=== PATIENT | male | born 2000 | race Caucasian/White ===

== ENCOUNTER 2023-04-27 08:57 | Outpatient (AMB) | payer OTHER, SELFPAY ==
[2023-04-27 09:02] VITALS: BP 108/70; PULSE 58; RESP 13; TEMP 36.6; O2SAT 99; BMI 26.8
--- NOTE | 2023-04-27 09:02 | MHC.PC.OV ---
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 Required: No Accompanied by: Self / Same As Patient Allergies shellfish derived Adverse Reaction (Intermediate, Verified 04/27/23 09:14) Hives wine Adverse Reaction (Intermediate, Uncoded 04/27/23 09:14) Hives Medication List - Last Reconciled 04/27/23 by Roselia De Los Santos CNP cetirizine (Zyrtec) 10 mg PO DAILY PRN finasteride 1 mg PO DAILY Tobacco use date assessed: 04/27/23 Dental Screening Dental Screen Date: 04/27/23 Did you have a dental visit in the last 12 months?: No Did you have a dental problem in the last 6 months where you did not have access to dental care?: No Was dental information given to patient?: Patient has dentist HPI HPI Comments History of Present Illness Details New patient Prior PCP:?[facility] Last office visit/CPE: About 5-6 years Acute issue(s): Rectal bleeding r/t anal fissure (diagnosed in the ED and urgent care January 2023) -No bleeding in the past 6 weeks Hair thinning/loss prevention -Is taking finasteride 1mg daily, prescribed by [facility] online Seasonal allergy -Is taking cetirizine 10mg daily He offers no complaints and denies acute symptoms at this time PMHx: Seasonal allergies, anal fissure, hair thinning/loss SurgHx: None FHx: Mom: Asthma SocHx: Nonsmoker. Non drinker. No recreational drugs. 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 1. Little interest or pleasure in doing things: not at all 2. Feeling down, depressed, or hopeless: not at all 3. Trouble falling or staying asleep, or sleeping too much: several days 4. Feeling tired or having little energy: several days 5. Poor appetite or overeating: not at all 6. Feeling bad about yourself - or that you are a failure or have let yourself or your family down: not at all 7. Trouble concentrating on things, such as reading the newspaper or watching television: not at all 8. Moving or speaking so slowly that other people could have noticed. Or the opposite - being so fidgety or restless that you have been moving around a lot more than usual: not at all 9. Thoughts that you would be better off or of hurting yourself in some way: not at all Total score: 2 Depression Screening Interpretation: Negative Depression Screening Done: Yes 13242 - PHQ-9 Billing: Yes Source: Developed by Drs. Earl El, Edith Seaman, Markus España and colleagues, with an educational sunshine from [employer]. Thrive Questionnaire Date Thrive assessed: 04/27/23 I am a: Patient What is your living situation today?: I have a steady place to live Within the past 12 months, did the food you bought not last and you didn't have the money to get more?: Never true Within the past 12 months, did you worry whether your food would run out before you got money to buy more?: Never true Do you have trouble paying for medicines?: No Do you have trouble getting transportation to medical appointments?: No Do you have trouble paying your heating and electricity bill?: No Do you have trouble taking care of your child, family member or friend?: No Do you have trouble with day-to-day activities such as bathing, preparing meals, shopping, managing finances, etc.?: No Are you currently unemployed and looking for a job?: No Are you interested in more education?: Yes Please select the resources that you would like help with: Education and None Currently or been in a relationship where the following occur: no concerns reported THRIVE Score: 0 AUDIT C Alcohol Use Questionnaire (AUDIT-C) 1. How often do you have a drink containing alcohol?: Never 3. How often do you have six or more drinks on one occasion?: Never Total Score: 0 CLARIBEL-7 AMB Questionnaire CLARIBEL-7 Date CLARIBEL - 7 assessed: 04/27/23 Feeling nervous, anxious, or on edge: 0 = Not at all Not being able to stop or control worryin = Not at all Worrying too much about different things: 0 = Not at all Trouble relaxin = Several days Being so restless that it is hard to sit still: 0 = Not at all Becoming easily annoyed or irritable: 0 = Not at all Feeling afraid as if something awful might happen: 0 = Not at all Total CLARIBEL-7 score (0-4 normal; 5-9 mild; 10-14 moderate; 15-21 severe): 1 Source: Developed by Drs. Earl El, Edith Seaman, Markus España and colleagues, with an educational sunshine from [employer]. CLARIBEL-7 Assessment Billing CLARIBEL-7 Assessment Tool: CLARIBEL-7 Assessment 12921 Review of Systems Const Details: Const Denies chills, Denies fatigue, Denies fever(s), Denies headache(s) and Denies weakness ENT Denies dizziness and Denies headache(s) Card Denies chest pain, Denies lightheadedness, Denies dyspnea and Denies other (Palpitations) Resp Denies cough, Denies dyspnea, Denies wheezing and Denies other ( shortness of breath) GI Denies abdominal pain, Denies melena, Denies hematochezia, Denies change in bowel habits, Denies dyspepsia and Denies nausea Denies hematuria and Denies dysuria Musc Denies abnormal gait, Denies myalgias, Denies arthralgias, Denies numbness and Denies tingling Skin/Breast Denies rash, Denies unusual bruising and Denies wounds Neuro Denies abnormal gait, Denies dizziness, Denies headache(s), Denies memory loss, Denies numbness, Denies Sensory deficit (Neuro), Denies tingling and Denies weakness Psych Denies anxiety, Denies depression, Denies memory loss Endo Denies cold intolerance, Denies fatigue, Denies heat intolerance, Denies polydipsia and Denies polyuria Aller/Immun Denies wheezing Physical exam (Primary Care) Vital Signs: Last Vital Signs Temp 97.8 F 04/27/23 09:02 Pulse 58 04/27/23 09:02 Resp 13 04/27/23 09:02 BP 108/70 04/27/23 09:02 Pulse Ox 99 04/27/23 09:02 Oxygen Delivery Method Room Air 04/27/23 09:02 BMI result Body Mass Index 26.8 Tobacco/Smoking Status: Tobacco use Status Tobacco use date assessed 04/27/23 04/27/23 09:15 Patient Tobacco Use Status Never used Tobacco 04/27/23 09:15 e-Cigarette/Vaping Use Never Used 04/27/23 09:15 PHQ-9: PHQ-9 Score PHQ-9: Total score 2 04/27/23 09:19 Depression Screening Interpretation: Negative Thrive Assessment: Date of Thrive Assessment Date Thrive assessed 04/27/23 04/27/23 09:15 Currently or been in a relationship where the following occur: no concerns reported Const Other: General: no acute distress and well developed Nutritional Appearance: well nourished Orientation/consciousness: patient oriented x3 HENMT Head: Yes normocephalic and Yes atraumatic Normal hair/volume Eyes General: appearance normal, both eyes and all related structures Pupils: Equal, round and reactive pupils present EOM: EOMs intact bilaterally Resp Effort & Inspection: normal respiratory effort Auscultation: clear to auscultation bilaterally Cardio Rate: regular rate Rhythm: regular rhythm Heart sounds: S1 normal heart sound present, S2 normal heart sound present, no gallops, no murmurs and no rubs GI Palpation (GI): No Abdominal aortic bruit present, Soft to palpation, nontender, No hepatosplenomegaly present and No Rebound tenderness present Auscultation: normal bowel sounds General: Yes no CVA tenderness Back/Spine/Pelvis Back: no CVA tenderness Cervical Spine: cervical ROM normal and No Cervical spine tenderness Thoracic/Lumbar Spine: thoraco-lumbar ROM normal, No pain with thoraco-lumbar ROM, No thoracic spinal tenderness and No lumbar spinal tenderness Extrem General: Yes normal to inspection, No edema and No calf tenderness Skin General: warm and dry. Normal skin color. Normal skin turgor Lesions: no lesions Rashes: no rashes Trauma: no lacerations or abrasions Wounds: no wounds Nails: normal Neuro General: patient oriented x3, gait normal and no focal neuro deficit Cranial nerves: Yes Equal, round and reactive pupils present Cognition (Neuro): normal cognition Gait exam (Neuro): Normal gait present Sensory Exam: No Sensory deficit (Neuro) Psych Appearance: grossly normal Affect: normal affect Attitude: cooperative Thought process: Normal thought process present Assessment and Plan Assessment & Plan (1) Anal fissure: Code(s): K60.2 - Anal fissure, unspecified Plan: Reports h/o anal fissure with rectal bleeding. No symptoms x 6 weeks Healthy diet including fibers and adequate hydration encouraged Follow-up in 1 month for complete physical exam and labs review or return sooner with symptoms or concerns. Will consider referring to GI Verbalized understanding and agreed with the plan (2) Seasonal allergies: Code(s): J30.2 - Other seasonal allergic rhinitis Plan: No acute symptoms On cetirizine daily Follow-up with symptoms or concerns Verbalized understanding and agreed with the plan (3) Laboratory tests ordered as part of a complete physical exam (CPE): Code(s): Z00.00 - Encounter for general adult medical examination without abnormal findings Plan: Fasting labs ordered in preparation of a complete physical exam. Advised to fast for at least 10 hours before getting labs drawn. May drink water Verbalized understanding and agreed with treatment plan. Orders: Orders Comprehensive [place]. Panel Fast Today Z00.00 - Encounter for general adult medical examination without abnormal findings Complete Blood Count Auto Diff Today Z00.00 - Encounter for general adult medical examination without abnormal findings Lipid Panel Today Z00.00 - Encounter for general adult medical examination without abnormal findings TSH reflex Free T4 Today Z00.00 - Encounter for general adult medical examination without abnormal findings UA CC w/rflx Micro + Cult Today Z00.00 - Encounter for general adult medical examination without abnormal findings Coding Level of Care Code New Pt Level 4 (61126) Diagnoses Anal fissure K60.2 Seasonal allergies J30.2 Laboratory tests ordered as part of a complete physical exam (CPE) Z00. Additional Codes CLARIBEL-7 Assessment Billing - CLARIBEL-7 Assessment Tool: CLARIBEL-7 Assessment 13656 ([id number])
== END 2023-04-27 09:38 | disposition home or self-care (01) ==
PROVIDERS: PCP Nurse Practitioner Family; Visit Provider Nurse Practitioner Family
DX: K60.2 Anal fissure, unspecified (principal); J30.2 Other seasonal allergic rhinitis; Z00.00 Encounter for general adult medical examination without abnormal findings
CPT/HCPCS: 99204

== ENCOUNTER 2023-05-19 09:09 | Outpatient (REF) | payer OTHER, SELFPAY ==
[2023-05-19 11:07] LABS: Appearance Urine Clear; Color Urine Yellow; Glucose Urine UA Negative (Negative); Leukocyte Esterase Urine Negative (Negative); Nitrite Urine Negative (Negative); Urine Blood Negative (Negative); Urine Ketones Negative (Negative); Urine Protein Negative (Neg-Trace)
[2023-05-19 11:09] LABS: MANUAL DIFF FLAG NO
[2023-05-19 11:11] LABS: Basophils Absolute Auto 0.1 X10*3/uL (0.0-0.2); Basophils Percent Auto 0.9 % (0-2); Eosinophils Absolute Auto 0.4 X10*3/uL (0.0-0.4); Eosinophils Percent Auto 5.9 % (0-4); Hematocrit 46.9 % (42.0-52.0); Hemoglobin 15.7 g/dl (14.0-18.0); Imm Gran Abs Auto 0.02 X10*3/uL (0.00-0.03); Imm Gran Pct Auto 0.3 % (0.0-0.4); Lymphocytes Percent Auto 31.7 % (20-40); Mean Corpuscular HGB Conc 33.5 g/dl (31.0-36.0); Mean Corpuscular Hemoglobin 29.4 pg (27.0-33.0); Mean Corpuscular Volume 87.8 fL (80.0-98.0); Monocytes Absolute Auto 0.5 X10*3/uL (0.1-1.2); Neutrophils Absolute Auto 3.5 x10*3/uL (2.0-8.3); Neutrophils Percent Auto 54.2 % (45-73); Platelet Count 278 X10*3/uL (160-400); Red Blood Count 5.34 X10*6/uL (4.60-5.80); Red Cell Distribution Width 13.2 % (11.0-16.0); White Blood Count 6.4 X10*3/uL (4.8-10.8)
[2023-05-19 12:34] LABS: Alanine Aminotransferase 57 U/L (0-40); Albumin Level 4.5 g/dL (3.5-5.0); Alkaline Phosphatase 70 U/L (39-117); Anion Gap 11 (12-20); Aspartate Amino Transferase 26 U/L (5-37); Bilirubin Total 0.5 mg/dL (0.0-1.0); Blood Urea Nitrogen 13 mg/dL (9-16); Calcium 9.4 mg/dL (8.4-10.2); Carbon Dioxide 28 mmol/L (22-29); Chloride 106 mmol/L (96-108); Cholesterol 110 mg/dL (<200); Estimated Glomerular Filt Rate > 60; Glucose Fasting 94 mg/dL (60-99); HDL Cholesterol 43 mg/dL (>40); LDL Cholesterol Calculated 61 mg/dL (<100); Potassium 4.1 mmol/L (3.3-5.1); Sodium 141 mmol/L (135-145); TSH reflex Free T4 0.57 uIU/mL (0.32-4.0); Total Protein 7.2 g/dL (6.5-8.0); Triglycerides 34 mg/dL (<150)
== END 2023-05-19 09:10 | disposition home or self-care (01) ==
LOC: HO.HMGCLDS 09:09
PROVIDERS: PCP Nurse Practitioner Family; Visit Provider Nurse Practitioner Family
DX: Z00.00 Encounter for general adult medical examination without abnormal findings (principal); Z13.6 Encounter for screening for cardiovascular disorders
CPT/HCPCS: 36415; 80053; 80061; 81003; 84443; 85025

== ENCOUNTER 2023-05-25 08:13 | Outpatient (AMB) | payer OTHER, SELFPAY ==
[2023-05-25 08:17] VITALS: BP 112/70; PULSE 94; RESP 13; TEMP 36.6; O2SAT 99; BMI 27.0
--- NOTE | 2023-05-25 08:17 | MHC.PC.OV ---
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 Required: No Accompanied by: Self / Same As Patient Allergies shellfish derived Adverse Reaction (Intermediate, Verified 05/25/23 08:30) Hives wine Adverse Reaction (Intermediate, Uncoded 05/25/23 08:30) Hives Medication List - Last Reconciled 05/25/23 by Roselia De Los Santos CNP cetirizine (Zyrtec) 10 mg PO DAILY PRN finasteride 1 mg PO DAILY Tobacco use date assessed: 04/27/23 Dental Screening Dental Screen Date: 05/25/23 Did you have a dental visit in the last 12 months?: No Did you have a dental problem in the last 6 months where you did not have access to dental care?: No Was dental information given to patient?: Yes HPI HPI Comments History of Present Illness Details 83-year-old male presents for an extended physical exam He offers no complaints and denies acute symptoms at this time He has not up-to-date on the flu vaccine and plans to get vaccinated from the local pharmacy Nonsmoker. Non drinker. No recreational drugs 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 1. Little interest or pleasure in doing things: not at all 2. Feeling down, depressed, or hopeless: not at all 3. Trouble falling or staying asleep, or sleeping too much: not at all 4. Feeling tired or having little energy: not at all 5. Poor appetite or overeating: not at all 6. Feeling bad about yourself - or that you are a failure or have let yourself or your family down: not at all 7. Trouble concentrating on things, such as reading the newspaper or watching television: not at all 8. Moving or speaking so slowly that other people could have noticed. Or the opposite - being so fidgety or restless that you have been moving around a lot more than usual: not at all 9. Thoughts that you would be better off or of hurting yourself in some way: not at all Total score: 0 Depression Screening Interpretation: Negative Depression Screening Done: Yes 27890 - PHQ-9 Billing: Yes Source: Developed by Drs. Earl El, Edith Seaman, Markus España and colleagues, with an educational sunshine from [employer]. Thrive Questionnaire Date Thrive assessed: 04/27/23 AUDIT C Alcohol Use Questionnaire (AUDIT-C) 1. How often do you have a drink containing alcohol?: Monthly or less 2. How many drinks containing alcohol do you have on a typical day when you are drinking?: 1 or 2 3. How often do you have six or more drinks on one occasion?: Never Total Score: 1 CLARIBEL-7 AMB Questionnaire CLARIBEL-7 Date CLARIBEL - 7 assessed: 05/25/23 Feeling nervous, anxious, or on edge: 0 = Not at all Not being able to stop or control worryin = Not at all Worrying too much about different things: 0 = Not at all Trouble relaxin = Not at all Being so restless that it is hard to sit still: 0 = Not at all Becoming easily annoyed or irritable: 0 = Not at all Feeling afraid as if something awful might happen: 0 = Not at all Total CLARIBEL-7 score (0-4 normal; 5-9 mild; 10-14 moderate; 15-21 severe): 0 Source: Developed by Drs. Earl El, Edith Seaman, Markus España and colleagues, with an educational sunshine from [employer]. CLARIBEL-7 Assessment Billing CLARIBEL-7 Assessment Tool: CLARIBEL-7 Assessment 54170 Review of Systems Const Details: Denies chills, Denies fatigue, Denies fever(s), Denies headache(s) and Denies weakness HEENT Denies change in vision, Denies dizziness, Denies headache(s), Denies hearing loss, Denies nasal congestion, Denies sinus pain, Denies sinus pressure and Denies sore throat Card Denies chest pain, Denies lightheadedness, Denies dyspnea and Denies other (palpitations) Resp Denies cough, Denies dyspnea and Denies wheezing GI Denies abdominal pain, Denies melena, Denies hematochezia, Denies change in bowel habits, Denies dyspepsia and Denies nausea Denies hematuria and Denies dysuria Musc Denies abnormal gait, Denies myalgias, Denies arthralgias, Denies numbness and Denies tingling Skin/Breast Denies rash, Denies unusual bruising and Denies wounds Neuro Denies abnormal gait, Denies dizziness, Denies headache(s), Denies memory loss, Denies numbness, Denies Sensory deficit (Neuro), Denies tingling and Denies weakness Psych Denies anxiety, Denies depression and Denies memory loss Endo Denies cold intolerance, Denies fatigue, Denies heat intolerance, Denies polydipsia and Denies polyuria Trace/Lymph Denies easy bleeding and Denies easy bruising Aller/Immun Denies wheezing Physical exam (Primary Care) Vital Signs: Last Vital Signs Temp 97.8 F 05/25/23 08:17 Pulse 94 05/25/23 08:17 Resp 13 05/25/23 08:17 BP 112/70 05/25/23 08:17 Pulse Ox 99 05/25/23 08:17 Oxygen Delivery Method Room Air 05/25/23 08:17 BMI result Body Mass Index 27.0 Tobacco/Smoking Status: Tobacco use Status Tobacco use date assessed 04/27/23 05/25/23 08:23 Patient Tobacco Use Status Never used Tobacco 05/25/23 08:23 e-Cigarette/Vaping Use Never Used 05/25/23 08:23 PHQ-9: PHQ-9 Score PHQ-9: Total score 0 05/25/23 08:23 Depression Screening Interpretation: Negative Thrive Assessment: Date of Thrive Assessment Date Thrive assessed 04/27/23 05/25/23 08:23 Const Other: General: no acute distress, well developed, alert and awake Nutritional Appearance: well nourished Orientation/consciousness: patient oriented x3 [facility] Head: Yes normocephalic and Yes atraumatic Ears: hearing grossly normal bilaterally and TM's normal bilaterally General nose exam: Normal external nose present and Normal nares present Mouth: Normal oral and palatal mucosa present and moist mucous membranes Teeth and gingiva: dentition normal Throat: Yes oropharynx normal Eyes Pupils: Equal, round and reactive pupils present and Pupil accommodation reflex normal EOM: EOMs intact bilaterally Neck Neck: Yes normal visual inspection, Yes no lymphadenopathy and Yes trachea midline Thyroid: Thyroid normal Carotids: no bruits Lymphatic: no lymphadenopathy noted Chest Chest palpation & inspection: normal inspection of the chest Resp Effort & Inspection: normal respiratory effort Auscultation: clear to auscultation bilaterally Cardio Rate: regular rate Rhythm: regular rhythm Heart sounds: S1 normal heart sound present, S2 normal heart sound present, no gallops, no murmurs and no rubs Bruits: no abdominal aortic bruits and no carotid bruits GI Palpation (GI): No Abdominal aortic bruit present, Soft to palpation, nontender, No hepatosplenomegaly present and No Rebound tenderness present Auscultation: normal bowel sounds General: Yes no CVA tenderness Back/Spine/Pelvis Back: no CVA tenderness Cervical Spine: cervical ROM normal and No Cervical spine tenderness Thoracic/Lumbar Spine: thoraco-lumbar ROM normal, No pain with thoraco-lumbar ROM, No thoracic spinal tenderness and No lumbar spinal tenderness Skin General: warm and dry. Normal skin color. Normal skin turgor Lesions: no lesions Rashes: no rashes Trauma: no lacerations or abrasions Wounds: no wounds Nails: normal Neuro General: patient oriented x3, gait normal and CN's II-XI intact bilaterally Cranial nerves: Yes Equal, round and reactive pupils present Cognition (Neuro): normal cognition Gait exam (Neuro): Normal gait present Motor exam (neuro): 5/5 motor strength present throughout Sensory Exam: No Sensory deficit (Neuro) Deep tendon reflexes (DTR's): Right patellar reflex intensity grade: 2+ and Left patellar reflex intensity grade: 2+ Extrem General: Yes normal to inspection, No edema and No calf tenderness Psych Appearance: grossly normal Affect: normal affect Attitude: cooperative Thought process: Normal thought process present Assessment and Plan Assessment & Plan (1) Normal physical examination, routine: Code(s): Z00.00 - Encounter for general adult medical examination without abnormal findings Plan: No significant physical restrictions or limitations noted Recent labs reviewed with the patient. 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
== END 2023-05-25 08:43 | disposition home or self-care (01) ==
PROVIDERS: PCP Nurse Practitioner Family; Visit Provider Nurse Practitioner Family
DX: Z00.00 Encounter for general adult medical examination without abnormal findings (principal)
CPT/HCPCS: 99395

== ENCOUNTER → 2023-10-08 16:31 | Outpatient (AMB) | payer OTHER, SELFPAY ==
--- NOTE | 2023-10-08 16:42 | MHC.PC.OV ---
Vital Signs 10/08/23 16:46 Height 6 ft 2.5 in Weight 210 lb BMI 26.6 BP 132/62 Blood Pressure Location Lt brachial Position Sitting Respiration 16 Pulse 54 Pulse Source Pulse Oximeter Pulse Oximetry (%) 97 Oxygen Delivery Method Room Air Intake Visit Reasons: Blood Pressure checkup Intake Note: Heart palpitations. Started back in June. Was taking Minoxidil in the past and stopped in June, which seemed to reduce palpations. Still gets flutters on an off. Allergies shellfish derived Adverse Reaction (Intermediate, Verified 10/08/23 16:49) Hives wine Adverse Reaction (Intermediate, Uncoded 10/08/23 16:49) Hives Medication List - Last Reconciled 10/08/23 by Roselia De Los Santos CNP cetirizine (Zyrtec) 10 mg PO DAILY PRN finasteride 1 mg PO DAILY Tobacco use date assessed: 04/27/23 Dental Screening Dental Screen Date: 05/25/23 HPI HPI Comments History of Present Illness Details 23-year-old male presents with complaints of intermittent palpitations. He notes that his symptoms started in June while he was on topical Minoxidil for hair regrowth. He was on Minoxidil for 27 months before stopping it. Before stopping the medication, he experienced strong palpations every night. However, the palpitations were subtle and reduced to once or twice a week after he stopped the medication; some weeks he has no palpations. He note that for the past 8 days, he has been experiencing subtle palpations, lasting 45 minutes to an hour, 4 days weekly. He was drinking 2-3 cups of black caffenated coffee daily but completely stopped drinking coffee 5 days ago. He has has experienced palpations only once, on Sunday, since he stopped drinking coffee. He defines drinking energy drinks or other caffenated beverages. No difficulty breathing or chest pain. No acute symptoms at this time. He lifts weight 3-4 times weekly. He states that he was evaluated at [facility] emergency room in June, mildly was experiencing palpitations; workup was unremarkable. 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 Earl El, Edith Seaman, Markus España and colleagues, with an educational sunshine from [employer]. Review of Systems Const Details: Const Denies chills, Denies fatigue, Denies fever(s), Denies headache(s) and Denies weakness ENT Denies dizziness and Denies headache(s) Card Denies chest pain, Denies lightheadedness, Denies dyspnea and Denies other (Palpitations) Resp Denies cough, Denies dyspnea, Denies wheezing and Denies other ( shortness of breath) GI Denies abdominal pain, Denies melena, Denies hematochezia, Denies change in bowel habits, Denies dyspepsia and Denies nausea Denies hematuria and Denies dysuria Musc Denies abnormal gait, Denies myalgias, Denies arthralgias, Denies numbness and Denies tingling Skin/Breast Denies rash, Denies unusual bruising and Denies wounds Neuro Denies abnormal gait, Denies dizziness, Denies headache(s), Denies memory loss, Denies numbness, Denies Sensory deficit (Neuro), Denies tingling and Denies weakness Psych Denies anxiety, Denies depression, Denies memory loss Endo Denies cold intolerance, Denies fatigue, Denies heat intolerance, Denies polydipsia and Denies polyuria Aller/Immun Denies wheezing Physical exam (Primary Care) Vital Signs: Last Vital Signs Pulse 54 10/08/23 16:46 Resp 16 10/08/23 16:46 BP 132/62 10/08/23 16:46 Pulse Ox 97 10/08/23 16:46 Oxygen Delivery Method Room Air 10/08/23 16:46 BMI result Body Mass Index 26.6 Tobacco/Smoking Status: Tobacco use Status Tobacco use date assessed 04/27/23 10/08/23 16:43 Patient Tobacco Use Status Never used Tobacco 10/08/23 16:43 e-Cigarette/Vaping Use Never Used 10/08/23 16:43 Thrive Assessment: Date of Thrive Assessment Date Thrive assessed 04/27/23 10/08/23 16:43 Const Other: General: no acute distress and well developed Nutritional Appearance: well nourished Orientation/consciousness: patient oriented x3 HENDE Head: Yes normocephalic and Yes atraumatic Eyes General: appearance normal, both eyes and all related structures Pupils: Equal, round and reactive pupils present EOM: EOMs intact bilaterally Resp Effort & Inspection: normal respiratory effort Auscultation: clear to auscultation bilaterally Cardio Rate: regular rate Rhythm: regular rhythm Heart sounds: S1 normal heart sound present, S2 normal heart sound present, no gallops, no murmurs and no rubs GI Palpation (GI): No Abdominal aortic bruit present, Soft to palpation, nontender, No hepatosplenomegaly present and No Rebound tenderness present Auscultation: normal bowel sounds General: Yes no CVA tenderness Back/Spine/Pelvis Back: no CVA tenderness Cervical Spine: cervical ROM normal and No Cervical spine tenderness Thoracic/Lumbar Spine: thoraco-lumbar ROM normal, No pain with thoraco-lumbar ROM, No thoracic spinal tenderness and No lumbar spinal tenderness Extrem General: Yes normal to inspection, No edema and No calf tenderness Skin General: warm and dry. Normal skin color. Normal skin turgor Neuro General: patient oriented x3, gait normal and no focal neuro deficit Cranial nerves: Yes Equal, round and reactive pupils present Cognition (Neuro): normal cognition Gait exam (Neuro): Normal gait present Sensory Exam: No Sensory deficit (Neuro) Psych Appearance: grossly normal Affect: normal affect Attitude: cooperative Thought process: Normal thought process present Assessment and Plan Assessment & Plan (1) Palpitations: Code(s): R00.2 - Palpitations Plan: Intermittent palpitations which started in 06/30/2023 while he was on minoxidil. His symptoms subsided when he stopped the medication. However, for the past 8 days, he has been experiencing subtle palpations, lasting 45 minutes. History of taking coffee 5 days ago and has had subtle palpitations once yesterday Heart with regular rate and rhythm EKG revealed sinus bradycardia; likely due to routine physical exercise Will order an Holter monitor test Encouraged to continue to avoid caffeinated beverages Routine exercise encouraged Schedule a follow-up appointment two weeks after Holter monitor test Go to the ED with worsening or new symptoms Verbalized understanding and agreed with the treatment plan Orders: Orders AMB EKG-In Office Today R00.2 - Palpitations ECG holter monitor 48 hour Today R00.2 - Palpitations Coding Level of Care Code Est Pt Level 4 (28962) Diagnoses Palpitations R00.2
[2023-10-08 16:46] VITALS: BP 132/62; PULSE 54; RESP 16; O2SAT 97; BMI 26.6
== END ==
PROVIDERS: PCP Nurse Practitioner Family; Visit Provider Nurse Practitioner Family
DX: R00.2 Palpitations (principal)
CPT/HCPCS: 99214

== ENCOUNTER → 2023-10-12 14:24 | Outpatient (REF) | payer OTHER, SELFPAY ==
--- NOTE | 2023-10-12 14:28 | HM_ITS ---
Conclusion: 1. Baseline was normal sinus rhythm with average heart of 65 beats per minute 2. No significant pauses or no arrhythmias 3. Patient marked events 2 times in association with sinus rhythm MTDD
== END ==
LOC: HO.CARD 14:24
PROVIDERS: PCP Nurse Practitioner Family; Visit Provider Nurse Practitioner Family
DX: R00.2 Palpitations (principal)
CPT/HCPCS: 93225

== ENCOUNTER → 2023-10-12 14:28 | Outpatient (BNV) | payer OTHER, SELFPAY | PROVIDERS: PCP Nurse Practitioner Family; Visit Provider Internal Medicine Cardiovascular Disease | DX: R00.2 Palpitations (principal); R00.1 Bradycardia, unspecified | CPT/HCPCS: 93227 ==

== ENCOUNTER 2024-05-24 09:17 | Outpatient (REF) | payer OTHER, SELFPAY ==
--- OUTSIDE RECORDS SUMMARY | 2024-05-24 09:19 | XMS_ITS | Encounter Summary ---
Author Organization [facility] Address [address] [place] [address] Phone Care Team Providers Care Shotgun Shell Loading Machine Operator Name Role Phone Steph Park ENGINEERING DOCUMENTATION SPECIALIST Primary Care Provider Un available Encounter Details Date Type Department Care Team (Late st Contact Info) Description 07/29/2013 Documentation EM Family Medicine [address] [place], [place] [phone] Family Medicine, Physician [address] [place] [address] Social History Tobacco Use Types Packs/Day Years Used Date Smoking Tobacco: Never Assessed Sex and Gender Information Value Date Recorded Sex Assigned at Not on file Legal Sex Male 5:00 PM EDT Gender Identity Not on file Sexual Orientation Not on file documented as of this encounter Plan of Treatment Not on file documented as of this encounter Visit Diagnoses Not on filedocumented in this encounter Care Teams Shotgun Shell Loading Machine Operator Relationship Specialty Start Date End Date Steph Park NP PCP - General 10/20/16 05/11/23 documented as of this encounter
--- OUTSIDE RECORDS SUMMARY | 2024-05-24 09:19 | XMS_ITS | Clinical Summary ---
Author Organization [facility] Address [address] [place] [phone] Phone Care Team Providers Care Technology Integration Specialist Name Role Phone Unavailable Primary Care Provider Unavailabl e Allergies No known active allergies Medications fluticasone (FLONASE) 50 MCG/ACT nasal spray FLONASE; inhale 1 - 2 spray by Intranasal route every day in each nostril as needed; 50 MCG/ACTUATION; 10/29/2015; Active 6 Active loratadine 10 MG tablet Take by mouth. 6 Active cetirizine 10 MG tablet Take 10 mg by mouth daily. Active Active Problems Problem Noted Date Diagnosed Date Allergic rhinitis 07/29/2013 Overview (10/12/2017): Has used cetrizine and flonase for this but more sporatically than daily. Symptoms do seem improved if used more regularly. In the past pt has been seen by ENT and mom was told tissue was thick and surgery was recommended around age 8 but this was deferred, since sx still so ongoing mom requesting pt be seen by ENT again, referral made. Assessment & Plan (12/22/2016 5:38 PM EDT): Has done better with regular use of flonase and zyrtec, encouraged to get back on those daily. Discussed referral to cupboard builder vs ENT given chronic congestion. If does not improve with daily medication (discussed ways to remember to take nightly) then would refer to specialist. Autistic disorder of childhood onset 07/29/2013 Assessment & Plan (12/22/2016 5:38 PM EDT): Stable, doing well, continue to be involved in activities and in school. Immunizations Immunization Administration Dates Next Due DTaP 5 06/22/2009,05/06/2009 H1N1 04/29/2009 HPV Vaccine 9 Valent 10/12/2017 Hep A, ped/adol 06/22/2009,10/13/2008 Hep B, ped/adol 06/22/2009,12/31/2008,07/30/2008 IPV 04/29/2009, 9,10/31/2005,07/16 Influenza Split 2012 Influenza, injectable, quadr ivalent, preservative free 12/22/2016 Influenza, injectable, trivalent 12/30/2010,12/10,04/29/2009 Influenza, intranasal, quadrivalent 12/08/2013,0 11/26/2012 MMR 12/31/2008,10/13/2008 Meningococcal Conj (Menactra) MCV4P 12/22/2016,0 05/31/2012 Tdap 05/31/2012 Varicella 04/29/2009,12/31/2008 Family History Medical History Relation Name Comments Heart murmur Maternal Grandmother Hyperlipidemia Maternal Grandmother No Known Problems Mother Herminia Relation Name Status Comments Brother Brother: Alive and well, Autism Maternal Grandmother Mother Herminia Alive Mother: Anemia Other Family history of Diabetes mellitus, Family history of Cancer, lung, Family history of Asthma, Family history of Obesity, Family history of Hyperlipidemia Social History Tobacco Use Types Packs/Day Years Used Date Smoking Tobacco: Never Smokeless Tobacco: Never Comments:Never smoker Alcohol Use Standard Drinks/Week Comments No 0 (1 standard drink = 0.6 oz pur e alcohol) Sex and Gender Information Value Date Recorded Sex Assigned at Not on file Legal Sex Male 5:00 PM EDT Gender Identity Not on file Sexual Orientation Not on file Last Filed Vital Signs Vital Sign Reading Time Taken Comments Blood Pressure 119/59 10/12/2017 1:42 PM EDT Pulse 59 10/12/2017 1:42 PM EDT Temperature 36.3 ??C (97.3 ??F) 12/22/2016 4:22 PM ED T Respiratory Rate - - Oxygen Saturation - - Inhaled Oxygen Concentration - - Weight 72 kg (158 lb 12.8 oz) 10/12/2017 1:42 PM EDT Height 188.6 cm (6' 2.25 ) 10/12/2017 1:42 PM ED T Body Mass Index 20.25 10/12/2017 1:42 PM EDT Plan of Treatment Health Maintenance Due Date Last Done Comments Consider Men B Vaccine (1 of 2 - Bexsero 2-dose series) 2016 HPV Vaccines (2 - Male 3-dose series) 11/09/2017 10/12/2017 DTaP,Tdap,and Td Vaccines (4 - Td or Tdap) 05/31/2022 05/31/2012, 06/22/2009, 05/06/2009 Influenza Vaccines (#1) 2023 12/19/19 20, 12/22/2016, 12/08/2013, Additional history exists COVID-19 Vaccine ( season) 2023 08/01/2020, 07/04/2020 MMR Vaccines Completed 12/31/2008, 10/13/2008 IPV Vaccines Completed 04/29/2009, 12/11, 10/31/2005, Additional history exists Varicella Vaccines Completed 04/29/2009, 12/31/2008 Hepatitis A Vaccines Completed 06/22/2009, 10/14/19 09 Hepatitis B Vaccines Completed 06/22/2009, 12/31/2008, 07/30/2008 Meningococcal Vaccine Completed 12/22/2016, 013 HIB Vaccines Aged Out No longer eligi ble based on patient's age to complete this topic Men B Vaccine Aged Out No longer elig ible based on patient's age to complete this topic Pneumococcal Vaccine Aged Out No long er eligible based on patient's age to complete this topic
--- OUTSIDE RECORDS SUMMARY | 2024-05-24 09:19 | XMS_ITS | Encounter Summary ---
Author Organization [facility] Address [address] [place] [phone] Phone Care Team Providers Care Slip Cover Sewer Name Role Phone Steph Park INTER COM INSTALLER Primary Care Provider Un available Encounter Details Date Type Department Care Team (Late st Contact Info) Description 12/10/2013 Documentation EM Family Medicine [address] [place], [place] [phone] Family Medicine, Physician [address] [place] [address] Social History Tobacco Use Types Packs/Day Years [...] on filedocumented in this encounter Care Teams Slip Cover Sewer Relationship Specialty Start Date End Date Steph Park NP PCP - General 10/20/16 05/11/23 documented as of this encounter
--- OUTSIDE RECORDS SUMMARY | 2024-05-24 09:19 | XMS_ITS | Encounter Summary ---
Author Organization [facility] Address [address] [place] [phone] Phone Care Team Providers Care Soldering Machine Operator Name Role Phone Steph Park CHECK PROCESSING CLERK Primary Care Provider Un available Encounter Details Date Type Department Care Team (Late st Contact Info) Description 07/31/2013 Documentation EM Family Medicine [address] [place], [place] [phone] Family Medicine, Physician [address] [place] [address] Social History Tobacco Use Types Packs/Day Years [...] on filedocumented in this encounter Care Teams Soldering Machine Operator Relationship Specialty Start Date End Date Steph Park NP PCP - General 10/20/16 05/11/23 documented as of this encounter
--- OUTSIDE RECORDS SUMMARY | 2024-05-24 09:19 | XMS_ITS | Encounter Summary ---
Author Organization [facility] Address [address] [place] [address] Phone Care Team Providers Care Corporate Travel Consultant Name Role Phone Steph Park ADOLESCENT COUNSELOR Primary Care Provider Un available Encounter Details Date Type Department Care Team (Late st Contact Info) Description 06/03/2012 Documentation EM Family Medicine [address] [place], [place] [phone] Family Medicine, Physician [address] [place] [address] Social History Tobacco Use Types Packs/Day Years [...] on filedocumented in this encounter Care Teams Corporate Travel Consultant Relationship Specialty Start Date End Date Steph Park NP PCP - General 10/20/16 05/11/23 documented as of this encounter
--- OUTSIDE RECORDS SUMMARY | 2024-05-24 09:19 | XMS_ITS | Encounter Summary ---
Author Organization [facility] Address [address] [place] [address] Phone Care Team Providers Care Manager Of Employee Relations Name Role Phone Steph Park MANAGER OF EMPLOYEE RELATIONS Primary Care Provider Un available Encounter Details Date Type Department Care Team (Late st Contact Info) Description 03/20/2012 Documentation EM Family Medicine [address] [place], [place] [phone] Family Medicine, Physician [address] [place] [address] Social History Tobacco Use Types Packs/Day Years [...] on filedocumented in this encounter Care Teams Manager Of Employee Relations Relationship Specialty Start Date End Date Steph Park NP PCP - General 10/20/16 05/11/23 documented as of this encounter
--- OUTSIDE RECORDS SUMMARY | 2024-05-24 09:19 | XMS_ITS | Encounter Summary ---
Author Organization [facility] Address [address] [place] [address] Phone Care Team Providers Care Degreasing Solution Reclaimer Name Role Phone Steph Park SOFTWARE LICENSING SPECIALIST Primary Care Provider Un available Encounter Details Date Type Department Care Team (Late st Contact Info) Description 06/04/2012 Documentation EM Family Medicine [address] [place], [place] [phone] Family Medicine, Physician [address] [place] [address] Social History Tobacco Use Types Packs/Day Years [...] on filedocumented in this encounter Care Teams Degreasing Solution Reclaimer Relationship Specialty Start Date End Date Steph Park NP PCP - General 10/20/16 05/11/23 documented as of this encounter
--- OUTSIDE RECORDS SUMMARY | 2024-05-24 09:19 | XMS_ITS | Encounter Summary ---
Author Organization [facility] Address [address] [place] [address] Phone Care Team Providers Care Tie Cutter Name Role Phone Steph Park TIRE BUILDER Primary Care Provider Un available Encounter Details Date Type Department Care Team (Late st Contact Info) Description 08/13/2014 Documentation EM Family Medicine [address] [place], [place] [phone] Family Medicine, Physician [address] [place] [address] Social History Tobacco Use Types Packs/Day Years [...] on filedocumented in this encounter Care Teams Tie Cutter Relationship Specialty Start Date End Date Steph Park NP PCP - General 10/20/16 05/11/23 documented as of this encounter
--- OUTSIDE RECORDS SUMMARY | 2024-05-24 09:19 | XMS_ITS | Encounter Summary ---
Author Organization [facility] Address [address] [place] [address] Phone Care Team Providers Care Zipper Trimmer Hand Name Role Phone Steph Park GAME DEVELOPER Primary Care Provider Un available Encounter Details Date Type Department Care Team (Late st Contact Info) Description 06/03/2012 Documentation EM Family Medicine [address] [place], [place] [phone] Family Medicine, Physician [address] [place] [address] Social History Tobacco Use Types Packs/Day Years [...] on filedocumented in this encounter Care Teams Zipper Trimmer Hand Relationship Specialty Start Date End Date Steph Park NP PCP - General 10/20/16 05/11/23 documented as of this encounter
--- OUTSIDE RECORDS SUMMARY | 2024-05-24 09:19 | XMS_ITS | Encounter Summary ---
Author Organization [facility] Address [address] [place] [address] Phone Care Team Providers Care Malted Milk Masher Name Role Phone Steph Park BAREBACK RIDER Primary Care Provider Un available Encounter Details Date Type Department Care Team (Late st Contact Info) Description 09/30/2015 Documentation EM Family Medicine [facility] [address] [place], [place] [phone] Family Medicine, Physician [address] [place] [address] Social History Tobacco Use Types Packs/Day Years Used Date Smoking Tobacco: Never Comments:Never smoker Sex and Gender Information Value Date Recorded Sex Assigned at Not on file Legal Sex Male 5:00 PM EDT Gender Identity Not on file Sexual Orientation Not on file documented as of this encounter Plan of Treatment Not on file documented as of this encounter Visit Diagnoses Not on filedocumented in this encounter Care Teams Malted Milk Masher Relationship Specialty Start Date End Date Steph Park NP PCP - General 10/20/16 05/11/23 documented as of this encounter
--- OUTSIDE RECORDS SUMMARY | 2024-05-24 09:19 | XMS_ITS | Encounter Summary ---
Author Organization [facility] Address [address] [place] [phone] Phone Care Team Providers Care Tipping Machine Operator Name Role Phone Steph Park BIOMATHEMATICIAN Primary Care Provider Un available Encounter Details Date Type Department Care Team (Late st Contact Info) Description 06/03/2012 Documentation EM Family Medicine [address] [place], [place] [phone] Family Medicine, Physician [address] [place] [address] Social History Tobacco Use Types Packs/Day Years [...] on filedocumented in this encounter Care Teams Tipping Machine Operator Relationship Specialty Start Date End Date Steph Park NP PCP - General 10/20/16 05/11/23 documented as of this encounter
--- OUTSIDE RECORDS SUMMARY | 2024-05-24 09:19 | XMS_ITS | Encounter Summary ---
Author Organization [facility] Address [address] [place] [address] Phone Care Team Providers Care Coding Auditor Name Role Phone Steph Park DIRECTOR PHARMACOVIGILANCE Primary Care Provider Un available Encounter Details Date Type Department Care Team (Late st Contact Info) Description 06/03/2012 Documentation EM Family Medicine [address] [place], [place] [phone] Family Medicine, Physician [address] [place] [address] Social History Tobacco Use Types Packs/Day Years [...] on filedocumented in this encounter Care Teams Coding Auditor Relationship Specialty Start Date End Date Steph Park NP PCP - General 10/20/16 05/11/23 documented as of this encounter
--- OUTSIDE RECORDS SUMMARY | 2024-05-24 09:19 | XMS_ITS | Encounter Summary ---
Author Organization [facility] Address [address] [place] [address] Phone Care Team Providers Care Coverstitch Machine Operator Name Role Phone Steph Park CITY COMPTROLLER Primary Care Provider Un available Encounter Details Date Type Department Care Team (Late st Contact Info) Description 06/03/2012 Documentation EM Family Medicine [address] [place], [place] [phone] Family Medicine, Physician [address] [place] [address] Social History Tobacco Use Types Packs/Day Years [...] on filedocumented in this encounter Care Teams Coverstitch Machine Operator Relationship Specialty Start Date End Date Steph Park NP PCP - General 10/20/16 05/11/23 documented as of this encounter
--- OUTSIDE RECORDS SUMMARY | 2024-05-24 09:19 | XMS_ITS | Encounter Summary ---
Author Organization [facility] Address [address] [place] [address] Phone Care Team Providers Care Portrait Artist Name Role Phone Steph Park NEEDLE PROCESS FELT GOODS SUPERVISOR Primary Care Provider Un available Encounter Details Date Type Department Care Team (Late st Contact Info) Description 08/13/2014 Documentation EM Family Medicine [address] [place], [place] [phone] Family Medicine, Physician [address] [place] [address] Social History Tobacco Use Types Packs/Day Years [...] on filedocumented in this encounter Care Teams Portrait Artist Relationship Specialty Start Date End Date Steph Park NP PCP - General 10/20/16 05/11/23 documented as of this encounter
--- OUTSIDE RECORDS SUMMARY | 2024-05-24 09:19 | XMS_ITS | Encounter Summary ---
Author Organization [facility] Address [address] [place] [address] Phone Care Team Providers Care Double Back Operator Name Role Phone Steph Park SCREEN TENDER HELPER Primary Care Provider Un available Encounter Details Date Type Department Care Team (Late st Contact Info) Description 11/27/2012 Documentation EM Family Medicine [address] [place], [place] [phone] Family Medicine, Physician [address] [place] [address] Social History Tobacco Use Types Packs/Day Years [...] on filedocumented in this encounter Care Teams Double Back Operator Relationship Specialty Start Date End Date Steph Park NP PCP - General 10/20/16 05/11/23 documented as of this encounter
--- OUTSIDE RECORDS SUMMARY | 2024-05-24 09:19 | XMS_ITS | Encounter Summary ---
Author Organization [facility] Address [address] [place] [address] Phone Care Team Providers Care Tunnel Kiln Firer Name Role Phone Steph Park RIG SITE ENGINEER Primary Care Provider Un available Encounter Details Date Type Department Care Team (Late st Contact Info) Description 11/27/2012 Documentation EM Family Medicine [address] [place], [place] [phone] Family Medicine, Physician [address] [place] [address] Social History Tobacco Use Types Packs/Day Years [...] on filedocumented in this encounter Care Teams Tunnel Kiln Firer Relationship Specialty Start Date End Date Steph Park NP PCP - General 10/20/16 05/11/23 documented as of this encounter
--- OUTSIDE RECORDS SUMMARY | 2024-05-24 09:19 | XMS_ITS | Encounter Summary ---
Author Organization [facility] Address [address] [place] [address] Phone Care Team Providers Care Brim Blocker Name Role Phone Steph Park NP Primary Care Provider Un available Encounter Details Date Type Department Care Team (Late st Contact Info) Description 10/26/2016 Conversion Encounter [facility] - [address] [address] Social History Tobacco Use Types Packs/Day Years [...] on filedocumented in this encounter Care Teams Brim Blocker Relationship Specialty Start Date End Date Steph Park NP PCP - General 10/20/16 05/11/23 documented as of this encounter
--- OUTSIDE RECORDS SUMMARY | 2024-05-24 09:19 | XMS_ITS | Encounter Summary ---
Author Organization [facility] Address [address] [place] [address] Phone Care Team Providers Care Repairer Kiln Car Name Role Phone Steph Park FULLING MILL OPERATOR Primary Care Provider Un available Encounter Details Date Type Department Care Team (Late st Contact Info) Description 06/03/2012 Documentation EM Family Medicine [address] [place], [place] [phone] Family Medicine, Physician [address] [place] [address] Social History Tobacco Use Types Packs/Day Years [...] on filedocumented in this encounter Care Teams Repairer Kiln Car Relationship Specialty Start Date End Date Steph Park NP PCP - General 10/20/16 05/11/23 documented as of this encounter
--- OUTSIDE RECORDS SUMMARY | 2024-05-24 09:19 | XMS_ITS | Encounter Summary ---
Author Organization [facility] Address [address] [place] [address] Phone Care Team Providers Care Ply Cutter Name Role Phone Steph Park HANDLE BENDER Primary Care Provider Un available Encounter Details Date Type Department Care Team (Late st Contact Info) Description 12/10/2013 Documentation EM Family Medicine [address] [place], [place] [phone] Family Medicine, Physician [address] [place] [address] Social History Tobacco Use Types Packs/Day Years [...] on filedocumented in this encounter Care Teams Ply Cutter Relationship Specialty Start Date End Date Steph Park NP PCP - General 10/20/16 05/11/23 documented as of this encounter
--- OUTSIDE RECORDS SUMMARY | 2024-05-24 09:19 | XMS_ITS | Encounter Summary ---
Author Organization [facility] Address [address] [place] [address] Phone Care Team Providers Care Otr Owner Operator Name Role Phone Steph Park SKIDWAY WORKER Primary Care Provider Un available Encounter Details Date Type Department Care Team (Late st Contact Info) Description 06/03/2012 Documentation EM Family Medicine [address] [place], [place] [phone] Family Medicine, Physician [address] [place] [address] Social History Tobacco Use Types Packs/Day Years [...] on filedocumented in this encounter Care Teams Otr Owner Operator Relationship Specialty Start Date End Date Steph Park NP PCP - General 10/20/16 05/11/23 documented as of this encounter
--- OUTSIDE RECORDS SUMMARY | 2024-05-24 09:19 | XMS_ITS | Encounter Summary ---
Author Organization [facility] Address [address] [place] [address] Phone Care Team Providers Care Production Shift Supervisor Name Role Phone Steph Park METAPHYSICS TEACHER Primary Care Provider Un available Encounter Details Date Type Department Care Team (Late st Contact Info) Description 07/31/2013 Documentation EM Family Medicine [address] [place], [place] [phone] Family Medicine, Physician [address] [place] [address] Social History Tobacco Use Types Packs/Day Years [...] on filedocumented in this encounter Care Teams Production Shift Supervisor Relationship Specialty Start Date End Date Steph Park NP PCP - General 10/20/16 05/11/23 documented as of this encounter
--- OUTSIDE RECORDS SUMMARY | 2024-05-24 09:19 | XMS_ITS | Encounter Summary ---
Author Organization [facility] Address [address] [place] [address] Phone Care Team Providers Care Tax Credit Leasing Consultant Name Role Phone Steph Park RESIDENTIAL REMODELING SUBCONTRACTOR Primary Care Provider Un available Encounter Details Date Type Department Care Team (Late st Contact Info) Description 03/20/2012 Documentation EM Family Medicine [address] [place], [place] [phone] Family Medicine, Physician [address] [place] [address] Social History Tobacco Use Types Packs/Day Years [...] on filedocumented in this encounter Care Teams Tax Credit Leasing Consultant Relationship Specialty Start Date End Date Steph Park NP PCP - General 10/20/16 05/11/23 documented as of this encounter
--- OUTSIDE RECORDS SUMMARY | 2024-05-24 09:19 | XMS_ITS | Encounter Summary ---
Author Organization [facility] Address [address] [place] [address] Phone Care Team Providers Care Drafter Directional Survey Name Role Phone Steph Park COOK CHILL TECHNICIAN Primary Care Provider Un available Encounter Details Date Type Department Care Team (Late st Contact Info) Description 06/03/2012 Documentation EM Family Medicine [address] [place], [place] [phone] Family Medicine, Physician [address] [place] [address] Social History Tobacco Use Types Packs/Day Years [...] on filedocumented in this encounter Care Teams Drafter Directional Survey Relationship Specialty Start Date End Date Steph Park NP PCP - General 10/20/16 05/11/23 documented as of this encounter
--- OUTSIDE RECORDS SUMMARY | 2024-05-24 09:19 | XMS_ITS | Encounter Summary ---
Author Organization [facility] Address [address] [place] [address] Phone Care Team Providers Care Fourth Mate Name Role Phone Steph Park CORK CUTTER Primary Care Provider Un available Encounter Details Date Type Department Care Team (Late st Contact Info) Description 08/13/2014 Documentation EM Family Medicine [address] [place], [place] [phone] Family Medicine, Physician [address] [place] [address] Social History Tobacco Use Types Packs/Day Years [...] on filedocumented in this encounter Care Teams Fourth Mate Relationship Specialty Start Date End Date Steph Park NP PCP - General 10/20/16 05/11/23 documented as of this encounter
--- OUTSIDE RECORDS SUMMARY | 2024-05-24 09:19 | XMS_ITS | Encounter Summary ---
Author Organization [facility] Address [address] [place] [address] Phone Care Team Providers Care Dust Mill Operator Name Role Phone Steph Park VIDEOTAPE OPERATOR Primary Care Provider Un available Encounter Details Date Type Department Care Team (Late st Contact Info) Description 11/27/2012 Documentation EM Family Medicine [address] [place], [place] [phone] Family Medicine, Physician [address] [place] [address] Social History Tobacco Use Types Packs/Day Years [...] on filedocumented in this encounter Care Teams Dust Mill Operator Relationship Specialty Start Date End Date Steph Park NP PCP - General 10/20/16 05/11/23 documented as of this encounter
--- OUTSIDE RECORDS SUMMARY | 2024-05-24 09:19 | XMS_ITS | Encounter Summary ---
Author Organization [facility] Address [address] [place] [address] Phone Care Team Providers Care Crop Or Livestock Tenant Farmer Name Role Phone Steph Park JANITOR HEAD Primary Care Provider Un available Encounter Details Date Type Department Care Team (Late st Contact Info) Description 06/03/2012 Documentation EM Family Medicine [address] [place], [place] [phone] Family Medicine, Physician [address] [place] [address] Social History Tobacco Use Types Packs/Day Years [...] on filedocumented in this encounter Care Teams Crop Or Livestock Tenant Farmer Relationship Specialty Start Date End Date Steph Park NP PCP - General 10/20/16 05/11/23 documented as of this encounter
--- OUTSIDE RECORDS SUMMARY | 2024-05-24 09:19 | XMS_ITS | Encounter Summary ---
Author Organization [facility] Address [address] [place] [address] Phone Care Team Providers Care Lab Tester Name Role Phone Steph Park VESSEL SPECIALIST Primary Care Provider Un available Encounter Details Date Type Department Care Team (Late st Contact Info) Description 05/22/2012 Documentation EM Family Medicine [address] [place], [place] [phone] Family Medicine, Physician [address] [place] [address] Social History Tobacco Use Types Packs/Day Years [...] on filedocumented in this encounter Care Teams Lab Tester Relationship Specialty Start Date End Date Steph Park NP PCP - General 10/20/16 05/11/23 documented as of this encounter
--- OUTSIDE RECORDS SUMMARY | 2024-05-24 09:19 | XMS_ITS | Encounter Summary ---
Author Organization [facility] Address [address] [place] [address] Phone Care Team Providers Care Data Warehouse Manager Name Role Phone Steph Park CUSTOMER CARE REPRESENTATIVE Primary Care Provider Un available Encounter Details Date Type Department Care Team (Late st Contact Info) Description 09/30/2015 Documentation EM Family Medicine [facility] [address] [place], [place] [phone] Family Medicine, Physician [address] [place] [address] Social History Tobacco Use Types Packs/Day Years [...] on filedocumented in this encounter Care Teams Data Warehouse Manager Relationship Specialty Start Date End Date Steph Park NP PCP - General 10/20/16 05/11/23 documented as of this encounter
--- OUTSIDE RECORDS SUMMARY | 2024-05-24 09:19 | XMS_ITS | Encounter Summary ---
Author Organization [facility] Address [address] [place] [address] Phone Care Team Providers Care Butt Welder Name Role Phone Steph Park PRODUCTION SOUND MIXER Primary Care Provider Un available Encounter Details Date Type Department Care Team (Late st Contact Info) Description 11/06/2012 Documentation EM Family Medicine [address] [place], [place] [phone] Family Medicine, Physician [address] [place] [address] Social History Tobacco Use Types Packs/Day Years [...] on filedocumented in this encounter Care Teams Butt Welder Relationship Specialty Start Date End Date Steph Park NP PCP - General 10/20/16 05/11/23 documented as of this encounter
--- OUTSIDE RECORDS SUMMARY | 2024-05-24 09:19 | XMS_ITS | Encounter Summary ---
Author Organization [facility] Address [address] [place] [address] Phone Care Team Providers Care Wellness Program Coordinator Name Role Phone Steph Park PERSONAL LINES INSURANCE AGENT Primary Care Provider Un available Encounter Details Date Type Department Care Team (Late st Contact Info) Description 11/20/2014 Documentation EM Family Medicine [facility] [address] [place], [place] [phone] Family Medicine, Physician [address] [place] [address] Social History Tobacco Use Types Packs/Day Years [...] on filedocumented in this encounter Care Teams Wellness Program Coordinator Relationship Specialty Start Date End Date Steph Park NP PCP - General 10/20/16 05/11/23 documented as of this encounter
[2024-05-24 11:21] LABS: MANUAL DIFF FLAG NO
[2024-05-24 11:22] LABS: Appearance Urine Clear; Color Urine Yellow; Glucose Urine UA Negative (Negative); Leukocyte Esterase Urine Negative (Negative); Nitrite Urine Negative (Negative); PH 7.5 (5.0-9.0); Specific Gravity - Urine <= 1.005 (1.005-1.025); Urine Blood Negative (Negative); Urine Ketones Negative (Negative); Urine Protein Negative (Neg-Trace)
[2024-05-24 11:28] LABS: Basophils Absolute Auto 0.1 X10*3/uL (0.0-0.2); Eosinophils Absolute Auto 0.4 X10*3/uL (0.0-0.4); Eosinophils Percent Auto 5.8 % (0-4); Hematocrit 46.2 % (42.0-52.0); Hemoglobin 15.4 g/dl (14.0-18.0); Imm Gran Abs Auto 0.01 X10*3/uL (0.00-0.03); Imm Gran Pct Auto 0.2 % (0.0-0.4); Lymphocytes Absolute Auto 2.4 X10*3/uL (1.2-4.9); Lymphocytes Percent Auto 38.8 % (20-40); Mean Corpuscular HGB Conc 33.3 g/dl (31.0-36.0); Mean Corpuscular Hemoglobin 29.2 pg (27.0-33.0); Mean Corpuscular Volume 87.7 fL (80.0-98.0); Mean Platelet Volume 9.9 fL (9.4-12.4); Monocytes Absolute Auto 0.5 X10*3/uL (0.1-1.2); Monocytes Percent Auto 7.4 % (2-11); Neutrophils Absolute Auto 2.9 x10*3/uL (2.0-8.3); Neutrophils Percent Auto 46.8 % (45-73); Platelet Count 266 X10*3/uL (160-400); Red Blood Count 5.27 X10*6/uL (4.60-5.80); Red Cell Distribution Width 13.4 % (11.0-16.0); White Blood Count 6.2 X10*3/uL (4.8-10.8)
[2024-05-24 11:55] LABS: Alanine Aminotransferase 34 U/L (0-40); Albumin Level 4.6 g/dL (3.5-5.0); Alkaline Phosphatase 72 U/L (39-117); Anion Gap 11 (12-20); Aspartate Amino Transferase 28 U/L (5-37); Bilirubin Total 0.6 mg/dL (0.0-1.0); Blood Urea Nitrogen 13 mg/dL (9-16); Calcium 9.5 mg/dL (8.4-10.2); Carbon Dioxide 27 mmol/L (22-29); Chloride 106 mmol/L (96-108); Cholesterol 113 mg/dL (<200); Estimated Glomerular Filt Rate > 60; Glucose Fasting 85 mg/dL (60-99); HDL Cholesterol 42 mg/dL (>40); LDL Cholesterol Calculated 64 mg/dL (<100); Potassium 4.1 mmol/L (3.3-5.1); Sodium 140 mmol/L (135-145); Total Protein 7.4 g/dL (6.5-8.0); Triglycerides 36 mg/dL (<150)
[2024-05-24 12:17] LABS: TSH reflex Free T4 0.85 uIU/mL (0.32-4.0)
== END 2024-05-24 09:18 | disposition home or self-care (01) ==
LOC: HO.HMGCLDS 09:17
PROVIDERS: PCP Nurse Practitioner Family; Visit Provider Nurse Practitioner Family
DX: Z00.00 Encounter for general adult medical examination without abnormal findings (principal); Z13.6 Encounter for screening for cardiovascular disorders
CPT/HCPCS: 36415; 80053; 80061; 81003; 82306; 84443; 85025

== ENCOUNTER 2024-05-26 08:26 | Outpatient (AMB) | payer OTHER, SELFPAY ==
--- NOTE | 2024-05-26 08:29 | MHC.PC.OV ---
Vital Signs 05/26/24 08:36 Height 6 ft 2.5 in Weight 210 lb 8 oz BMI 26.7 BP 129/58 L Blood Pressure Location Rt brachial Position Sitting Respiration 16 Pulse 68 Pulse Source Pulse Oximeter Temp 98.2 F Temp Source Oral Pulse Oximetry (%) 100 Oxygen Delivery Method Room Air Intake Visit Reasons: cpe Intake Note: patient here for CPE Biofuels Engineering Manager Required: No Allergies shellfish derived Adverse Reaction (Intermediate, Verified 05/26/24 08:42) Hives Medication List - Last Reconciled 05/26/24 by Roselia De Los Santos CNP cetirizine (Zyrtec) 10 mg PO DAILY PRN finasteride 1 mg PO DAILY Tobacco use date assessed: 05/26/24 Dental Screening Dental Screen Date: 05/26/24 Did you have a dental visit in the last 12 months?: No Did you have a dental problem in the last 6 months where you did not have access to dental care?: No Was dental information given to patient?: Yes HPI HPI Comments History of Present Illness Details 24-year-old male presents for an extended physical exam. Acute issue(s) - Hair thinning/loss: On finasteride 1 mg daily from [facility] - Seasonal allergies: On cetirizine 10 mg daily PRN Past Medical History - Seasonal allergies, anal fissure, hair thinning/loss, palpitations Social History - Nonsmoker. Does not vape. Drinks beers 1 glass of wine every other week. Denies recreational drug use - Has been making healthy dietary choices. Exercises routinely. Generally sleep well - He notes that he has not been sexually active for about a year and has no concern for STDs Health maintenance - He has never had an eye exam. Referred to Ophthalmology for routine eye exam - Last dental visit was about 3 years ago; encouraged to schedule an appointment with his dentist for routine dental care. 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 1. Little interest or pleasure in doing things: not at all 2. Feeling down, depressed, or hopeless: not at all 3. Trouble falling or staying asleep, or sleeping too much: several days 4. Feeling tired or having little energy: several days 5. Poor appetite or overeating: not at all 6. Feeling bad about yourself - or that you are a failure or have let yourself or your family down: not at all 7. Trouble concentrating on things, such as reading the newspaper or watching television: not at all 8. Moving or speaking so slowly that other people could have noticed. Or the opposite - being so fidgety or restless that you have been moving around a lot more than usual: not at all 9. Thoughts that you would be better off or of hurting yourself in some way: not at all Total score: 2 Depression Screening Interpretation: Negative Depression Screening Done: Yes 81542 - PHQ-9 Billing: Yes Source: Developed by Drs. Earl El, Edith Seaman, Markus España and colleagues, with an educational sunshine from [employer]. Thrive Questionnaire Date Thrive assessed: 05/26/24 I am a: Patient What is your living situation today?: I have a steady place to live Within the past 12 months, did the food you bought not last and you didn't have the money to get more?: Never true Within the past 12 months, did you worry whether your food would run out before you got money to buy more?: Never true Do you have trouble paying for medicines?: No Do you have trouble getting transportation to medical appointments?: No Do you have trouble paying your heating and electricity bill?: No Do you have trouble taking care of your child, family member or friend?: No Do you have trouble with day-to-day activities such as bathing, preparing meals, shopping, managing finances, etc.?: No Are you currently unemployed and looking for a job?: No Are you interested in more education?: Yes Please select the resources that you would like help with: Education Currently or been in a relationship where the following occur: No concerns reported THRIVE Score: 0 AUDIT C Alcohol Use Questionnaire (AUDIT-C) 1. How often do you have a drink containing alcohol?: Monthly or less 2. How many drinks containing alcohol do you have on a typical day when you are drinking?: 1 or 2 3. How often do you have six or more drinks on one occasion?: Never Total Score: 1 Score Reviewed/Action Taken: Yes CLARIBEL-7 AMB Questionnaire CLARIBEL-7 Date CLARIBEL - 7 assessed: 05/26/24 Feeling nervous, anxious, or on edge: 1 = Several days Not being able to stop or control worryin = Several days Worrying too much about different things: 2 = More than half the days Trouble relaxin = Several days Being so restless that it is hard to sit still: 0 = Not at all Becoming easily annoyed or irritable: 1 = Several days Feeling afraid as if something awful might happen: 0 = Not at all Total CLARIBEL-7 score (0-4 normal; 5-9 mild; 10-14 moderate; 15-21 severe): 6 Source: Developed by Drs. Earl El, Edith Seaman, Markus España and colleagues, with an educational sunshine from [employer]. CLARIBEL-7 Assessment Billing CLARIBEL-7 Assessment Tool: CLARIBEL-7 Assessment 40064 Review of Systems Const Details: Const Denies chills, Denies fatigue, Denies fever(s), Denies headache(s) and Denies weakness ENT Denies dizziness and Denies headache(s) Card Denies chest pain, Denies lightheadedness, Denies dyspnea and Denies other (Palpitations) Resp Denies cough, Denies dyspnea, Denies wheezing and Denies other ( shortness of breath) GI Denies abdominal pain, Denies melena, Denies hematochezia, Denies change in bowel habits, Denies dyspepsia and Denies nausea Denies hematuria and Denies dysuria Musc Denies abnormal gait, Denies myalgias, Denies arthralgias, Denies numbness and Denies tingling Skin/Breast Denies rash, Denies unusual bruising and Denies wounds Neuro Denies abnormal gait, Denies dizziness, Denies headache(s), Denies memory loss, Denies numbness, Denies Sensory deficit (Neuro), Denies tingling and Denies weakness Psych Denies anxiety, Denies depression, Denies memory loss Endo Denies cold intolerance, Denies fatigue, Denies heat intolerance, Denies polydipsia and Denies polyuria Aller/Immun Denies wheezing Physical exam (Primary Care) Vital Signs: Last Vital Signs Temp 98.2 F 05/26/24 08:36 Pulse 68 05/26/24 08:36 Resp 16 05/26/24 08:36 BP 129/58 L 05/26/24 08:36 Pulse Ox 100 05/26/24 08:36 Oxygen Delivery Method Room Air 05/26/24 08:36 BMI result Body Mass Index 26.7 Tobacco/Smoking Status: Tobacco use Status Tobacco use date assessed 05/26/24 05/26/24 08:35 Patient Tobacco Use Status Never used Tobacco 05/26/24 08:32 e-Cigarette/Vaping Use Never Used 05/26/24 08:32 PHQ-9: PHQ-9 Score PHQ-9: Total score 2 05/26/24 09:24 Depression Screening Interpretation: Negative Thrive Assessment: Date of Thrive Assessment Date Thrive assessed 05/26/24 05/26/24 08:32 Currently or been in a relationship where the following occur: No concerns reported Const Other: General: no acute distress and well developed Nutritional Appearance: well nourished Orientation/consciousness: patient oriented x3 HENMT Head: Yes normocephalic and Yes atraumatic Eyes General: appearance normal, both eyes and all related structures Pupils: Equal, round and reactive pupils present EOM: EOMs intact bilaterally Resp Effort & Inspection: normal respiratory effort Auscultation: clear to auscultation bilaterally Cardio Rate: regular rate Rhythm: regular rhythm Heart sounds: S1 normal heart sound present, S2 normal heart sound present, no gallops, no murmurs and no rubs GI Palpation (GI): No Abdominal aortic bruit present, Soft to palpation, nontender, No hepatosplenomegaly present and No Rebound tenderness present Auscultation: normal bowel sounds General: Yes no CVA tenderness Back/Spine/Pelvis Back: no CVA tenderness Cervical Spine: cervical ROM normal and No Cervical spine tenderness Thoracic/Lumbar Spine: thoraco-lumbar ROM normal, No pain with thoraco-lumbar ROM, No thoracic spinal tenderness and No lumbar spinal tenderness Extrem General: Yes normal to inspection, No edema and No calf tenderness Skin General: warm and dry. Normal skin color. Normal skin turgor Lesions: no lesions Rashes: no rashes Trauma: no lacerations or abrasions Wounds: no wounds Nails: normal Neuro General: patient oriented x3, gait normal and no focal neuro deficit Cranial nerves: Yes Equal, round and reactive pupils present Cognition (Neuro): normal cognition Gait exam (Neuro): Normal gait present Sensory Exam: No Sensory deficit (Neuro) Psych Appearance: grossly normal Affect: normal affect Attitude: cooperative Thought process: Normal thought process present Immunizations Boostrix Tdap 2.5 Lf unit-8 mcg-5 Lf/0.5 mL intramuscular syringe Performing Provider: Roselia De Los Santos CNP Performing Location: [facility] Administered by: Blanco Chau RN on 05/26/24 09:24 Dose Route Admin Location Dispensed Lot Number Expiration Date NDC Runner Worker 0.5 mL IM Left Deltoid 0.5 mL [id number] 06/28/26 [id number] [employer] VIS Given Date VIS Provided VIS Publication Date 05/26/24 Single Vaccine 20 Eligibility Eligibility Date Funding Source Not [facility] Eligible 05/26/24 Private Coding Level of Care Code Est Pt Prev Care 18-39y(76133) Diagnoses Normal physical examination, routine Z00.00 Eye exam, routine Z01.00 Additional Codes CLARIBEL-7 Assessment Billing - CLARIBEL-7 Assessment Tool: CLARIBEL-7 Assessment 30885 ([id number]) PHQ-9 - 24403 - PHQ-9 Billing: Yes ([id number]) Assessment & Plan Assessment & Plan (1) Normal physical examination, routine: Code(s): Z00.00 - Encounter for general adult medical examination without abnormal findings Category: Medical Plan: No significant functional limitations noted. Healthy diet and routine exercise encouraged. Recent lab results reviewed with the patient; unremarkable findings. Follow-up for an extended physical exam a year from today. Return sooner with symptoms or concerns. Verbalized understanding and agreed with treatment plan. (2) Eye exam, routine: Code(s): Z01.00 - Encounter for examination of eyes and vision without abnormal findings Category: Medical Plan: He has never had an eye exam. Referred to Ophthalmology for routine eye exam. Orders: Orders TDaP Immunization Today Z23 - Encounter for immunization Referrals Ophthalmology Referral Z01.00 - Encounter for examination of eyes and vision without abnormal findings
[2024-05-26 08:36] VITALS: BP 129/58; PULSE 68; RESP 16; TEMP 36.8; O2SAT 100; BMI 26.7
== END 2024-05-26 09:23 | disposition home or self-care (01) ==
LOC: HO.HMCFM 08:26
PROVIDERS: PCP Nurse Practitioner Family; Visit Provider Nurse Practitioner Family
DX: Z00.00 Encounter for general adult medical examination without abnormal findings (principal); Z23 Encounter for immunization

== ENCOUNTER → 2024-05-26 08:26 | Outpatient (BNVA) | payer OTHER, SELFPAY | PROVIDERS: PCP Nurse Practitioner Family; Visit Provider Nurse Practitioner Family | DX: Z00.00 Encounter for general adult medical examination without abnormal findings (principal); Z23 Encounter for immunization | CPT/HCPCS: 90471; 90715; 96127 ==

== ENCOUNTER 2024-06-10 12:57 | Outpatient (AMB) | payer OTHER, SELFPAY ==
--- NOTE | 2024-06-10 12:58 | MHC.PC.OV ---
Vital Signs 06/10/24 13:04 Height 6 ft 2.5 in Weight 209 lb 2 oz BMI 26.5 BP 121/56 L Blood Pressure Location Rt brachial Position Sitting Respiration 16 Pulse 78 Pulse Source Pulse Oximeter Temp 97.7 F Temp Source Oral Pulse Oximetry (%) 98 Oxygen Delivery Method Room Air Intake Visit Reasons: dry mouth Intake Note: patient here c/o dry mouth for the past 2 wks Loss Prevention Consultant Required: No Allergies shellfish derived Adverse Reaction (Intermediate, Verified 06/10/24 13:15) Hives Medication List - Last Reviewed 06/10/24 by Jessica Velázquez MA cetirizine (Zyrtec) 10 mg PO DAILY finasteride 1 mg PO DAILY Tobacco use date assessed: 06/10/24 Dental Screening Dental Screen Date: 06/10/24 Did you have a dental visit in the last 12 months?: No Did you have a dental problem in the last 6 months where you did not have access to dental care?: No Was dental information given to patient?: No (patient already got a list) HPI HPI Comments History of Present Illness Details 24-year-old male presents with complaints of intermittent dry mouth for the past 2 days. He takes finasteride 1 mg daily to help with hair loss and cetirizine 10 mg daily for seasonal allergies. He drinks 1-2 coffee daily. He does not smoke cigarettes. No acute symptoms at this time. 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 Cognitive needs: No Hearing needs: No Vision needs: No Questionnaire Thrive Questionnaire Date Thrive assessed: 05/20/24 I am a: Patient What is your living situation today?: I have a steady place to live Within the past 12 months, did the food you bought not last and you didn't have the money to get more?: Never true Within the past 12 months, did you worry whether your food would run out before you got money to buy more?: Never true Do you have trouble paying for medicines?: No Do you have trouble getting transportation to medical appointments?: No Do you have trouble paying your heating and electricity bill?: No Do you have trouble taking care of your child, family member or friend?: No Do you have trouble with day-to-day activities such as bathing, preparing meals, shopping, managing finances, etc.?: No Are you currently unemployed and looking for a job?: No Are you interested in more education?: Yes Please select the resources that you would like help with: Education Currently or been in a relationship where the following occur: No concerns reported THRIVE Score: 0 CLARIBEL-7 AMB Questionnaire CLARIBEL-7 Date CLARIBEL - 7 assessed: 05/26/24 Source: Developed by Drs. Earl El, Edith Seaman, Markus España and colleagues, with an educational sunshine from [employer]. Review of Systems Const Details: Const Denies chills, Denies fatigue, Denies fever(s), Denies headache(s) and Denies weakness ENT Reports as per HPI Card Denies chest pain, Denies lightheadedness, Denies dyspnea and Denies other (Palpitations) Resp Denies cough, Denies dyspnea, Denies wheezing and Denies other ( shortness of breath) GI Denies abdominal pain, Denies melena, Denies hematochezia, Denies change in bowel habits, Denies dyspepsia and Denies nausea Denies hematuria and Denies dysuria Musc Denies abnormal gait, Denies myalgias, Denies arthralgias, Denies numbness and Denies tingling Skin/Breast Denies rash, Denies unusual bruising and Denies wounds Neuro Denies abnormal gait, Denies dizziness, Denies headache(s), Denies memory loss, Denies numbness, Denies Sensory deficit (Neuro), Denies tingling and Denies weakness Psych Denies anxiety, Denies depression, Denies memory loss Endo Denies cold intolerance, Denies fatigue, Denies heat intolerance, Denies polydipsia and Denies polyuria Aller/Immun Denies wheezing Physical exam (Primary Care) Vital Signs: Last Vital Signs Temp 97.7 F 06/10/24 13:04 Pulse 78 06/10/24 13:04 Resp 16 06/10/24 13:04 BP 121/56 L 06/10/24 13:04 Pulse Ox 98 06/10/24 13:04 Oxygen Delivery Method Room Air 06/10/24 13:04 BMI result Body Mass Index 26.5 Tobacco/Smoking Status: Tobacco use Status Tobacco use date assessed 06/10/24 06/10/24 13:07 Patient Tobacco Use Status Never used Tobacco 06/10/24 13:01 e-Cigarette/Vaping Use Never Used 06/10/24 13:01 Thrive Assessment: Date of Thrive Assessment Date Thrive assessed 05/20/24 06/10/24 13:01 Currently or been in a relationship where the following occur: No concerns reported Const Other: General: no acute distress and well developed Nutritional Appearance: well nourished Orientation/consciousness: patient oriented x3 HENMT Head is normocephalic Bilateral ear canal and TM are normal Nasal turbinates and oropharynx are pink and moist Sinuses are nontender with palpation No auricular or cervical lymphadenopathy Eyes General: appearance normal, both eyes and all related structures Pupils: Equal, round and reactive pupils present EOM: EOMs intact bilaterally Resp Effort & Inspection: normal respiratory effort Auscultation: clear to auscultation bilaterally Cardio Rate: regular rate Rhythm: regular rhythm Heart sounds: S1 normal heart sound present, S2 normal heart sound present, no gallops, no murmurs and no rubs GI Palpation (GI): No Abdominal aortic bruit present, Soft to palpation, nontender, No hepatosplenomegaly present and No Rebound tenderness present Auscultation: normal bowel sounds General: Yes no CVA tenderness Back/Spine/Pelvis Back: no CVA tenderness Cervical Spine: cervical ROM normal and No Cervical spine tenderness Thoracic/Lumbar Spine: thoraco-lumbar ROM normal, No pain with thoraco-lumbar ROM, No thoracic spinal tenderness and No lumbar spinal tenderness Extrem General: Yes normal to inspection, No edema and No calf tenderness Skin General: warm and dry. Normal skin color. Normal skin turgor Neuro General: patient oriented x3, gait normal and no focal neuro deficit Cranial nerves: Yes Equal, round and reactive pupils present Cognition (Neuro): normal cognition Gait exam (Neuro): Normal gait present Sensory Exam: No Sensory deficit (Neuro) Psych Appearance: grossly normal Affect: normal affect Attitude: cooperative Thought process: Normal thought process present Coding Level of Care Code Est Pt Level 3 (57965) Diagnoses Dry mouth R68.2 Assessment & Plan Assessment & Plan (1) Dry mouth: Code(s): R68.2 - Dry mouth, unspecified Category: Medical Plan: Reports dry mouth for the past 2 days. Likely related to cetirizine. May chew sugar free-gum or suck on sugar-free candies. May use a humidifier at night. May also cut down on his caffeine intake. May hold cetirizine with worsening symptoms. Follow-up with worsening or new symptoms. Verbalized understanding and agreed with the plan.
[2024-06-10 13:04] VITALS: BP 121/56; PULSE 78; RESP 16; TEMP 36.5; O2SAT 98; BMI 26.5
--- OUTSIDE RECORDS SUMMARY | 2024-06-10 15:08 | XMS_ITS | Encounter Summary ---
Author Organization [facility] Address [address] [place] [address] Phone Care Team Providers Care Engineering Geologist Name Role Phone Steph Park STUDENT LIFE COORDINATOR Primary Care Provider Un available Encounter Details Date Type Department Care Team (Late st Contact Info) Description 09/30/2015 Documentation EM Family Medicine [facility] [address]where [place], [place] [phone] Family Medicine, Physician [address] [place] [address] Social History Tobacco Use Types Packs/Day Years [...] on filedocumented in this encounter Care Teams Engineering Geologist Relationship Specialty Start Date End Date Steph Park NP PCP - General 10/20/16 05/11/23 documented as of this encounter
--- OUTSIDE RECORDS SUMMARY | 2024-06-10 15:08 | XMS_ITS | Encounter Summary ---
Author Organization [facility] Address [address] [place] [address] Phone Care Team Providers Care Horse Stud Manager Name Role Phone Steph Park PROCEDURES RN Primary Care Provider Un available Encounter Details Date Type Department Care Team (Late st Contact Info) Description 03/20/2012 Documentation EM Family Medicine [address] [place], [place] [phone] Family Medicine, Physician [address] [place] [address] Social History Tobacco Use Types Packs/Day Years [...] on filedocumented in this encounter Care Teams Horse Stud Manager Relationship Specialty Start Date End Date Steph Park NP PCP - General 10/20/16 05/11/23 documented as of this encounter
--- OUTSIDE RECORDS SUMMARY | 2024-06-10 15:08 | XMS_ITS | Encounter Summary ---
Author Organization [facility] Address [address] [place] [address] Phone Care Team Providers Care Landscape Engineer Name Role Phone Steph Park SAFETY ASSISTANT Primary Care Provider Un available Encounter Details Date Type Department Care Team (Late st Contact Info) Description 07/31/2013 Documentation EM Family Medicine [address] [place], [place] [phone] Family Medicine, Physician [address] [place] [address] Social History Tobacco Use Types Packs/Day Years [...] on filedocumented in this encounter Care Teams Landscape Engineer Relationship Specialty Start Date End Date Steph Park NP PCP - General 10/20/16 05/11/23 documented as of this encounter
--- OUTSIDE RECORDS SUMMARY | 2024-06-10 15:08 | XMS_ITS | Encounter Summary ---
Author Organization [facility] Address [address] [place] [address] Phone Care Team Providers Care Radiation Therapist Name Role Phone Steph Park INDUCTOR TESTER Primary Care Provider Un available Encounter Details Date Type Department Care Team (Late st Contact Info) Description 09/30/2015 Documentation EM Family Medicine [facility] Anywhere [place], [place] [phone] Family Medicine, Physician [address] [place] [address] Social History Tobacco Use Types Packs/Day Years [...] on filedocumented in this encounter Care Teams Radiation Therapist Relationship Specialty Start Date End Date Steph Park NP PCP - General 10/20/16 05/11/23 documented as of this encounter
--- OUTSIDE RECORDS SUMMARY | 2024-06-10 15:08 | XMS_ITS | Encounter Summary ---
Author Organization [facility] Address [address] [place] [address] Phone Care Team Providers Care Network Internship Name Role Phone Steph Park GALVANIZING POT RUNNER Primary Care Provider Un available Encounter Details Date Type Department Care Team (Late st Contact Info) Description 06/03/2012 Documentation EM Family Medicine [address] [place], [place] [phone] Family Medicine, Physician [address] [place] [address] Social History Tobacco Use Types Packs/Day Years [...] on filedocumented in this encounter Care Teams Network Internship Relationship Specialty Start Date End Date Steph Park NP PCP - General 10/20/16 05/11/23 documented as of this encounter
--- OUTSIDE RECORDS SUMMARY | 2024-06-10 15:08 | XMS_ITS | Encounter Summary ---
Author Organization [facility] Address [address] [place] [address] Phone Care Team Providers Care Real Estate Administrative Assistant Name Role Phone Steph Park WILDLIFE MANAGER Primary Care Provider Un available Encounter Details Date Type Department Care Team (Late st Contact Info) Description 12/10/2013 Documentation EM Family Medicine [address] [place], [place] [phone] Family Medicine, Physician [address] [place] [address] Social History Tobacco Use Types Packs/Day Years [...] on filedocumented in this encounter Care Teams Real Estate Administrative Assistant Relationship Specialty Start Date End Date Steph Park NP PCP - General 10/20/16 05/11/23 documented as of this encounter
--- OUTSIDE RECORDS SUMMARY | 2024-06-10 15:08 | XMS_ITS | Encounter Summary ---
Author Organization [facility] Address [address] [place] [address] Phone Care Team Providers Care Patient Safety Sitter Name Role Phone Steph Park ANIMAL STUNNER Primary Care Provider Un available Encounter Details Date Type Department Care Team (Late st Contact Info) Description 08/13/2014 Documentation EM Family Medicine [address] [place], [place] [phone] Family Medicine, Physician [address] [place] [address] Social History Tobacco Use Types Packs/Day Years [...] on filedocumented in this encounter Care Teams Patient Safety Sitter Relationship Specialty Start Date End Date Steph Park NP PCP - General 10/20/16 05/11/23 documented as of this encounter
--- OUTSIDE RECORDS SUMMARY | 2024-06-10 15:08 | XMS_ITS | Encounter Summary ---
Author Organization [facility] Address [address] [place] [address] Phone Care Team Providers Care Glass Engraver Name Role Phone Steph Park PERSONNEL ASSOCIATE Primary Care Provider Un available Encounter Details Date Type Department Care Team (Late st Contact Info) Description 08/13/2014 Documentation EM Family Medicine [address] [place], [place] [phone] Family Medicine, Physician [address] [place] [address] Social History Tobacco Use Types Packs/Day Years [...] on filedocumented in this encounter Care Teams Glass Engraver Relationship Specialty Start Date End Date Steph Park NP PCP - General 10/20/16 05/11/23 documented as of this encounter
--- OUTSIDE RECORDS SUMMARY | 2024-06-10 15:08 | XMS_ITS | Encounter Summary ---
Author Organization [facility] Address [address] [place] [address] Phone Care Team Providers Care Belt Knife Feeder Name Role Phone Steph Park STRATEGIC SOURCING CONSULTANT Primary Care Provider Un available Encounter Details Date Type Department Care Team (Late st Contact Info) Description 06/03/2012 Documentation EM Family Medicine [address] [place], [place] [phone] Family Medicine, Physician [address] [place] [address] Social History Tobacco Use Types Packs/Day Years [...] on filedocumented in this encounter Care Teams Belt Knife Feeder Relationship Specialty Start Date End Date Steph Park NP PCP - General 10/20/16 05/11/23 documented as of this encounter
--- OUTSIDE RECORDS SUMMARY | 2024-06-10 15:08 | XMS_ITS | Encounter Summary ---
Author Organization [facility] Address [address] [place] [address] Phone Care Team Providers Care Supervisor Mail Carriers Name Role Phone Steph Park PATIENT CARE NURSING ASSISTANT Primary Care Provider Un available Encounter Details Date Type Department Care Team (Late st Contact Info) Description 03/20/2012 Documentation EM Family Medicine [address] [place], [place] [phone] Family Medicine, Physician [address] [place] [address] Social History Tobacco Use Types Packs/Day Years [...] on filedocumented in this encounter Care Teams Supervisor Mail Carriers Relationship Specialty Start Date End Date Steph Park NP PCP - General 10/20/16 05/11/23 documented as of this encounter
--- OUTSIDE RECORDS SUMMARY | 2024-06-10 15:08 | XMS_ITS | Encounter Summary ---
Author Organization [facility] Address [address] [place] [address] Phone Care Team Providers Care Lawn And Tree Service Spray Supervisor Name Role Phone Steph Park NP Primary Care Provider Un available Encounter Details Date Type Department Care Team (Late st Contact Info) Description 10/26/2016 Conversion Encounter [facility] - [address] [address] Social History Tobacco Use Types Packs/Day Years [...] on filedocumented in this encounter Care Teams Lawn And Tree Service Spray Supervisor Relationship Specialty Start Date End Date Steph Park NP PCP - General 10/20/16 05/11/23 documented as of this encounter
--- OUTSIDE RECORDS SUMMARY | 2024-06-10 15:08 | XMS_ITS | Encounter Summary ---
Author Organization [facility] Address [address] [place] [address] Phone Care Team Providers Care Associate Web Developer Name Role Phone Steph Park INFRASTRUCTURE DEVELOPER Primary Care Provider Un available Encounter Details Date Type Department Care Team (Late st Contact Info) Description 12/10/2013 Documentation EM Family Medicine [address] [place], [place] [phone] Family Medicine, Physician [address] [place] [address] Social History Tobacco Use Types Packs/Day Years [...] on filedocumented in this encounter Care Teams Associate Web Developer Relationship Specialty Start Date End Date Steph Park NP PCP - General 10/20/16 05/11/23 documented as of this encounter
--- OUTSIDE RECORDS SUMMARY | 2024-06-10 15:08 | XMS_ITS | Encounter Summary ---
Author Organization [facility] Address [address] [place] [address] Phone Care Team Providers Care Revenue Manager Name Role Phone Steph Park CARPET TILE LAYER Primary Care Provider Un available Encounter Details Date Type Department Care Team (Late st Contact Info) Description 05/22/2012 Documentation EM Family Medicine [address] [place], [place] [phone] Family Medicine, Physician [address] [place] [address] Social History Tobacco Use Types Packs/Day Years [...] on filedocumented in this encounter Care Teams Revenue Manager Relationship Specialty Start Date End Date Setph Park NP PCP - General 10/20/16 05/11/23 documented as of this encounter
--- OUTSIDE RECORDS SUMMARY | 2024-06-10 15:08 | XMS_ITS | Encounter Summary ---
Author Organization [facility] Address [address] [place] [address] Phone Care Team Providers Care Screw Machine Setter Name Role Phone Steph Park RESERVATION AGENT Primary Care Provider Un available Encounter Details Date Type Department Care Team (Late st Contact Info) Description 11/20/2014 Documentation EM Family Medicine [facility] [address]where [place], [place] [phone] Family Medicine, Physician [address] [place] [address] Social History Tobacco Use Types Packs/Day Years [...] on filedocumented in this encounter Care Teams Screw Machine Setter Relationship Specialty Start Date End Date Steph Park NP PCP - General 10/20/16 05/11/23 documented as of this encounter
--- OUTSIDE RECORDS SUMMARY | 2024-06-10 15:08 | XMS_ITS | Encounter Summary ---
Author Organization [facility] Address [address] [place] [address] Phone Care Team Providers Care Midlevel Provider Name Role Phone Steph Park PC INSTALLATION ENGINEER Primary Care Provider Un available Encounter Details Date Type Department Care Team (Late st Contact Info) Description 08/13/2014 Documentation EM Family Medicine [address] [place], [place] [phone] Family Medicine, Physician [address] [place] [address] Social History Tobacco Use Types Packs/Day Years [...] on filedocumented in this encounter Care Teams Midlevel Provider Relationship Specialty Start Date End Date Steph Park NP PCP - General 10/20/16 05/11/23 documented as of this encounter
--- OUTSIDE RECORDS SUMMARY | 2024-06-10 15:08 | XMS_ITS | Encounter Summary ---
Author Organization [facility] Address [address] [place] [address] Phone Care Team Providers Care Imaging Science Professor Name Role Phone Steph Park MESSENGER OFFICE Primary Care Provider Un available Encounter Details Date Type Department Care Team (Late st Contact Info) Description 06/03/2012 Documentation EM Family Medicine [address] [place], [place] [phone] Family Medicine, Physician [address] [place] [address] Social History Tobacco Use Types Packs/Day Years [...] on filedocumented in this encounter Care Teams Imaging Science Professor Relationship Specialty Start Date End Date Steph Park NP PCP - General 10/20/16 05/11/23 documented as of this encounter
--- OUTSIDE RECORDS SUMMARY | 2024-06-10 15:09 | XMS_ITS | Encounter Summary ---
Author Organization [facility] Address [address] [place] [address] Phone Care Team Providers Care Body Coverer Name Role Phone Steph Park SITE PROJECT MANAGER Primary Care Provider Un available Encounter Details Date Type Department Care Team (Late st Contact Info) Description 06/03/2012 Documentation EM Family Medicine [address] [place], [place] [phone] Family Medicine, Physician [address] [place] [address] Social History Tobacco Use Types Packs/Day Years [...] on filedocumented in this encounter Care Teams Body Coverer Relationship Specialty Start Date End Date Steph Park NP PCP - General 10/20/16 05/11/23 documented as of this encounter
--- OUTSIDE RECORDS SUMMARY | 2024-06-10 15:09 | XMS_ITS | Encounter Summary ---
Author Organization [facility] Address [address] [place] [address] Phone Care Team Providers Care Hadoop Application Developer Name Role Phone Steph Park MILLING PLANER OPERATOR Primary Care Provider Un available Encounter Details Date Type Department Care Team (Late st Contact Info) Description 06/03/2012 Documentation EM Family Medicine [address] [place], [place] [phone] Family Medicine, Physician [address] [place] [address] Social History Tobacco Use Types Packs/Day Years [...] on filedocumented in this encounter Care Teams Hadoop Application Developer Relationship Specialty Start Date End Date Steph Park NP PCP - General 10/20/16 05/11/23 documented as of this encounter
--- OUTSIDE RECORDS SUMMARY | 2024-06-10 15:09 | XMS_ITS | Encounter Summary ---
Author Organization [facility] Address [address] [place] [address] Phone Care Team Providers Care Set Off Press Operator Name Role Phone Steph Park DRYWALL STRIPPER HELPER Primary Care Provider Un available Encounter Details Date Type Department Care Team (Late st Contact Info) Description 07/29/2013 Documentation EM Family Medicine [address] [place], [place] [phone] Family Medicine, Physician [address] [place] [address] Social History Tobacco Use Types Packs/Day Years [...] on filedocumented in this encounter Care Teams Set Off Press Operator Relationship Specialty Start Date End Date Steph Park NP PCP - General 10/20/16 05/11/23 documented as of this encounter
--- OUTSIDE RECORDS SUMMARY | 2024-06-10 15:09 | XMS_ITS | Clinical Summary ---
Author Organization [facility] Address [address] [place] [address] Phone Care Team Providers Care Financial Investment Adviser Name Role Phone Unavailable Primary Care Provider [...] back on those daily. Discussed referral to computational sciences professor vs ENT given chronic congestion. If does [...] Health Maintenance Due Date Last Done Comments HPV Vaccines (2 - Male 3-dose series) [...]
--- OUTSIDE RECORDS SUMMARY | 2024-06-10 15:09 | XMS_ITS | Encounter Summary ---
Author Organization [facility] Address [address] [place] [address] Phone Care Team Providers Care Chief Engineer Waterworks Name Role Phone Steph Park LIQUEFIED PETROLEUM GASFITTER Primary Care Provider Un available Encounter Details Date Type Department Care Team (Late st Contact Info) Description 06/03/2012 Documentation EM Family Medicine [address] [place], [place] [phone] Family Medicine, Physician [address] [place] [address] Social History Tobacco Use Types Packs/Day Years [...] on filedocumented in this encounter Care Teams Chief Engineer Waterworks Relationship Specialty Start Date End Date Steph Park NP PCP - General 10/20/16 05/11/23 documented as of this encounter
--- OUTSIDE RECORDS SUMMARY | 2024-06-10 15:09 | XMS_ITS | Encounter Summary ---
Author Organization [facility] Address [address] [place] [address] Phone Care Team Providers Care Digital Media Specialist Name Role Phone Steph Park VOICE STUDIES DIRECTOR Primary Care Provider Un available Encounter Details Date Type Department Care Team (Late st Contact Info) Description 11/27/2012 Documentation EM Family Medicine [address] [place], [place] [phone] Family Medicine, Physician [address] [place] [address] Social History Tobacco Use Types Packs/Day Years [...] on filedocumented in this encounter Care Teams Digital Media Specialist Relationship Specialty Start Date End Date Steph Park NP PCP - General 10/20/16 05/11/23 documented as of this encounter
--- OUTSIDE RECORDS SUMMARY | 2024-06-10 15:09 | XMS_ITS | Encounter Summary ---
Author Organization [facility] Address [address] [place] [address] Phone Care Team Providers Care Set Up Mold Technician Name Role Phone Steph Park POWDER GUARD Primary Care Provider Un available Encounter Details Date Type Department Care Team (Late st Contact Info) Description 11/27/2012 Documentation EM Family Medicine [address] [place], [place] [phone] Family Medicine, Physician [address] [place] [address] Social History Tobacco Use Types Packs/Day Years [...] filedocumented in this encounter Care Teams Set Up Mold Technician Relationship Specialty Start Date End Date Steph Park NP PCP - General 10/20/16 05/11/23 documented as of this encounter
--- OUTSIDE RECORDS SUMMARY | 2024-06-10 15:09 | XMS_ITS | Encounter Summary ---
Author Organization [facility] Address [address] [place] [address] Phone Care Team Providers Care Body Straightener Name Role Phone Steph Park SHOE STAINER Primary Care Provider Un available Encounter Details Date Type Department Care Team (Late st Contact Info) Description 06/03/2012 Documentation EM Family Medicine [address] [place], [place] [phone] Family Medicine, Physician [address] [place] [address] Social History Tobacco Use Types Packs/Day Years [...] filedocumented in this encounter Care Teams Body Straightener Relationship Specialty Start Date End Date Steph Park NP PCP - General 10/20/16 05/11/23 documented as of this encounter
--- OUTSIDE RECORDS SUMMARY | 2024-06-10 15:09 | XMS_ITS | Encounter Summary ---
Author Organization [facility] Address [address] [place] [address] Phone Care Team Providers Care Pipe Bender Name Role Phone Steph Park CARE TEAM ASSISTANT Primary Care Provider Un available Encounter Details Date Type Department Care Team (Late st Contact Info) Description 11/27/2012 Documentation EM Family Medicine [address] [place], [place] [phone] Family Medicine, Physician [address] [place] [address] Social History Tobacco Use Types Packs/Day Years [...] on filedocumented in this encounter Care Teams Pipe Bender Relationship Specialty Start Date End Date Steph Park NP PCP - General 10/20/16 05/11/23 documented as of this encounter
--- OUTSIDE RECORDS SUMMARY | 2024-06-10 15:09 | XMS_ITS | Encounter Summary ---
Author Organization [facility] Address [address] [place] [address] Phone Care Team Providers Care Orthopedic Assistant Name Role Phone Steph Park LINE ERECTOR APPRENTICE Primary Care Provider Un available Encounter Details Date Type Department Care Team (Late st Contact Info) Description 06/04/2012 Documentation EM Family Medicine [address] [place], [place] [phone] Family Medicine, Physician [address] [place] [address] Social History Tobacco Use Types Packs/Day Years [...] on filedocumented in this encounter Care Teams Orthopedic Assistant Relationship Specialty Start Date End Date Steph Park NP PCP - General 10/20/16 05/11/23 documented as of this encounter
--- OUTSIDE RECORDS SUMMARY | 2024-06-10 15:09 | XMS_ITS | Encounter Summary ---
Author Organization [facility] Address [address] [place] [address] Phone Care Team Providers Care Solar Maintenance Technician Name Role Phone Steph Park HAM BONER Primary Care Provider Un available Encounter Details Date Type Department Care Team (Late st Contact Info) Description 07/31/2013 Documentation EM Family Medicine [address] [place], [place] [phone] Family Medicine, Physician [address] [place] [address] Social History Tobacco Use Types Packs/Day Years [...] on filedocumented in this encounter Care Teams Solar Maintenance Technician Relationship Specialty Start Date End Date Steph Park NP PCP - General 10/20/16 05/11/23 documented as of this encounter
--- OUTSIDE RECORDS SUMMARY | 2024-06-10 15:09 | XMS_ITS | Encounter Summary ---
Author Organization [facility] Address [address] [place] [address] Phone Care Team Providers Care Blender Conveyor Operator Name Role Phone Steph Park RETORT OPERATOR Primary Care Provider Un available Encounter Details Date Type Department Care Team (Late st Contact Info) Description 06/03/2012 Documentation EM Family Medicine [address] [place], [place] [phone] Family Medicine, Physician [address] [place] [address] Social History Tobacco Use Types Packs/Day Years [...] on filedocumented in this encounter Care Teams Blender Conveyor Operator Relationship Specialty Start Date End Date Steph Park NP PCP - General 10/20/16 05/11/23 documented as of this encounter
--- OUTSIDE RECORDS SUMMARY | 2024-06-10 15:09 | XMS_ITS | Encounter Summary ---
Author Organization [facility] Address [address] [place] [address] Phone Care Team Providers Care Corporate Scheduler Name Role Phone Steph Park CONSTRUCTION ESTIMATOR Primary Care Provider Un available Encounter Details Date Type Department Care Team (Late st Contact Info) Description 11/06/2012 Documentation EM Family Medicine [address] [place], [place] [phone] Family Medicine, Physician [address] [place] [address] Social History Tobacco Use Types Packs/Day Years [...] filedocumented in this encounter Care Teams Corporate Scheduler Relationship Specialty Start Date End Date Steph Park NP PCP - General 10/20/16 05/11/23 documented as of this encounter
--- OUTSIDE RECORDS SUMMARY | 2024-06-10 15:09 | XMS_ITS | Encounter Summary ---
Author Organization [facility] Address [address] [place] [address] Phone Care Team Providers Care Professor Of Environmental Science Name Role Phone Steph Park COLLEGE BASKETBALL COACH Primary Care Provider Un available Encounter Details Date Type Department Care Team (Late st Contact Info) Description 06/03/2012 Documentation EM Family Medicine [address] [place], [place] [phone] Family Medicine, Physician [address] [place] [address] Social History Tobacco Use Types Packs/Day Years [...] on filedocumented in this encounter Care Teams Professor Of Environmental Science Relationship Specialty Start Date End Date Steph Park NP PCP - General 10/20/16 05/11/23 documented as of this encounter
== END 2024-06-10 15:13 | disposition home or self-care (01) ==
LOC: HO.HMCFM 12:57
PROVIDERS: PCP Nurse Practitioner Family; Visit Provider Nurse Practitioner Family
DX: R68.2 Dry mouth, unspecified (principal)

== ENCOUNTER 2024-07-15 11:39 | Outpatient (AMB) | payer OTHER, SELFPAY ==
--- NOTE | 2024-07-15 11:42 | MHC.PC.OV ---
Vital Signs 07/15/24 11:47 Height 6 ft 2.5 in Weight 209 lb 2 oz BMI 26.5 BP 115/56 L Blood Pressure Location Rt brachial Position Sitting Respiration 16 Pulse 60 Pulse Source Pulse Oximeter Temp 98.2 F Temp Source Oral Pulse Oximetry (%) 98 Oxygen Delivery Method Room Air Intake Visit Reasons: Allergy issues Intake Note: patient here c/o allergy issues on and off Conflicts Analyst Required: No Allergies shellfish derived Adverse Reaction (Intermediate, Verified 07/15/24 12:16) Hives Medication List - Last Reconciled 07/15/24 by Roselia De Los Santos CNP cetirizine (Zyrtec) 10 mg PO DAILY finasteride 1 mg PO DAILY Tobacco use date assessed: 07/15/24 Dental Screening Dental Screen Date: 07/15/24 Did you have a dental visit in the last 12 months?: No Did you have a dental problem in the last 6 months where you did not have access to dental care?: No Was dental information given to patient?: No HPI HPI Comments History of Present Illness Details 24-year-old male presents with complaints of allergy symptoms. He reports intermittent maxillary sinus tenderness and dryness in his throat. He takes cetirizine 10 mg daily without relief. No acute symptoms at this time. 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 Current occupational exposures/hazards: No Cognitive needs: No Hearing needs: No Vision needs: No Questionnaire Thrive Questionnaire Date Thrive assessed: 05/20/24 I am a: Patient What is your living situation today?: I have a steady place to live Within the past 12 months, did the food you bought not last and you didn't have the money to get more?: Never true Within the past 12 months, did you worry whether your food would run out before you got money to buy more?: Never true Do you have trouble paying for medicines?: No Do you have trouble getting transportation to medical appointments?: No Do you have trouble paying your heating and electricity bill?: No Do you have trouble taking care of your child, family member or friend?: No Do you have trouble with day-to-day activities such as bathing, preparing meals, shopping, managing finances, etc.?: No Are you currently unemployed and looking for a job?: No Are you interested in more education?: Yes Please select the resources that you would like help with: Education Currently or been in a relationship where the following occur: No concerns reported THRIVE Score: 0 CLARIBEL-7 AMB Questionnaire CLARIBEL-7 Date CLARIBEL - 7 assessed: 05/26/24 Source: Developed by Drs. Earl El, Edith Seaman, Markus España and colleagues, with an educational sunshine from [employer]. Review of Systems Const Details: Const Denies chills, Denies fatigue, Denies fever(s), Denies headache(s) and Denies weakness ENT Denies dizziness and Denies headache(s) Card Denies chest pain, Denies lightheadedness, Denies dyspnea and Denies other (Palpitations) Resp Denies cough, Denies dyspnea, Denies wheezing and Denies other ( shortness of breath) GI Denies abdominal pain, Denies melena, Denies hematochezia, Denies change in bowel habits, Denies dyspepsia and Denies nausea Denies hematuria and Denies dysuria Musc Denies abnormal gait, Denies myalgias, Denies arthralgias, Denies numbness and Denies tingling Skin/Breast Denies rash, Denies unusual bruising and Denies wounds Neuro Denies abnormal gait, Denies dizziness, Denies headache(s), Denies memory loss, Denies numbness, Denies Sensory deficit (Neuro), Denies tingling and Denies weakness Psych Denies anxiety, Denies depression, Denies memory loss Endo Denies cold intolerance, Denies fatigue, Denies heat intolerance, Denies polydipsia and Denies polyuria Aller/Immun Denies wheezing Physical exam (Primary Care) Vital Signs: Last Vital Signs Temp 98.2 F 07/15/24 11:47 Pulse 60 07/15/24 11:47 Resp 16 07/15/24 11:47 BP 115/56 L 07/15/24 11:47 Pulse Ox 98 07/15/24 11:47 Oxygen Delivery Method Room Air 07/15/24 11:47 BMI result Body Mass Index 26.5 Tobacco/Smoking Status: Tobacco use Status Tobacco use date assessed 07/15/24 07/15/24 11:50 Patient Tobacco Use Status Never used Tobacco 07/15/24 11:45 e-Cigarette/Vaping Use Never Used 07/15/24 11:45 Thrive Assessment: Date of Thrive Assessment Date Thrive assessed 05/20/24 07/15/24 11:45 Currently or been in a relationship where the following occur: No concerns reported Const Other: General: no acute distress and well developed Nutritional Appearance: well nourished Orientation/consciousness: patient oriented x3 HENMT Head is normocephalic Bilateral ear canal and TM are normal Nasal turbinates and oropharynx are pink and moist Sinuses are nontender with palpation No auricular or cervical lymphadenopathy Eyes General: appearance normal, both eyes and all related structures Pupils: Equal, round and reactive pupils present EOM: EOMs intact bilaterally Resp Effort & Inspection: normal respiratory effort Auscultation: clear to auscultation bilaterally Cardio Rate: regular rate Rhythm: regular rhythm Heart sounds: S1 normal heart sound present, S2 normal heart sound present, no gallops, no murmurs and no rubs GI Palpation (GI): No Abdominal aortic bruit present, Soft to palpation, nontender, No hepatosplenomegaly present and No Rebound tenderness present Auscultation: normal bowel sounds General: Yes no CVA tenderness Back/Spine/Pelvis Back: no CVA tenderness Cervical Spine: cervical ROM normal and No Cervical spine tenderness Thoracic/Lumbar Spine: thoraco-lumbar ROM normal, No pain with thoraco-lumbar ROM, No thoracic spinal tenderness and No lumbar spinal tenderness Extrem General: Yes normal to inspection, No edema and No calf tenderness Skin General: warm and dry. Normal skin color. Normal skin turgor Neuro General: patient oriented x3, gait normal and no focal neuro deficit Cranial nerves: Yes Equal, round and reactive pupils present Cognition (Neuro): normal cognition Gait exam (Neuro): Normal gait present Sensory Exam: No Sensory deficit (Neuro) Psych Appearance: grossly normal Affect: normal affect Attitude: cooperative Thought process: Normal thought process present Coding Level of Care Code Est Pt Level 3 (40649) Diagnoses Seasonal allergies J30.2 Assessment & Plan Assessment & Plan (1) Seasonal allergies: Code(s): J30.2 - Other seasonal allergic rhinitis Category: Medical Plan: Flonase ordered. Advised to is still 2 sprays in each nostril daily. Continue to take cetirizine 10 mg daily. Follow-up with worsening or new symptoms. Verbalized understanding and agreed with treatment plan. Medications: New fluticasone propionate 50 mcg/actuation (Flonase Allergy Relief) Administer into each nostril. Two actuations in each nostril daily x1 week; and then 1-2 actuations in each nostril daily 2 sprays intranasal DAILY 16 grams 3RF
[2024-07-15 11:47] VITALS: BP 115/56; PULSE 60; RESP 16; TEMP 36.8; O2SAT 98; BMI 26.5
--- OUTSIDE RECORDS SUMMARY | 2024-07-15 13:20 | XMS_ITS | Encounter Summary ---
Author Organization [facility] Address [address] [place] [address] Phone Care Team Providers Care Label Pinker Name Role Phone Steph Park EARLY CHILDHOOD EDUCATOR AIDE Primary Care Provider Un available Encounter Details Date Type Department Care Team (Late st Contact Info) Description 03/20/2012 Documentation EM Family Medicine [address] [place], [place] [phone] Family Medicine, Physician [address] [place] [address] Social History Tobacco Use Types Packs/Day Years [...] on filedocumented in this encounter Care Teams Label Pinker Relationship Specialty Start Date End Date Steph Park NP PCP - General 10/20/16 05/11/23 documented as of this encounter
--- OUTSIDE RECORDS SUMMARY | 2024-07-15 13:20 | XMS_ITS | Encounter Summary ---
Author Organization [facility] Address [address] [place] [address] Phone Care Team Providers Care Agriculture Inspector Name Role Phone Steph Park FINANCIAL AID OFFICER Primary Care Provider Un available Encounter Details Date Type Department Care Team (Late st Contact Info) Description 05/22/2012 Documentation EM Family Medicine [address] [place], [place] [phone] Family Medicine, Physician [address] [place] [address] Social History Tobacco Use Types Packs/Day Years [...] on filedocumented in this encounter Care Teams Agriculture Inspector Relationship Specialty Start Date End Date Steph Park NP PCP - General 10/20/16 05/11/23 documented as of this encounter
--- OUTSIDE RECORDS SUMMARY | 2024-07-15 13:20 | XMS_ITS | Encounter Summary ---
Author Organization [facility] Address [address] [place] [address] Phone Care Team Providers Care Sample Shoe Inspector And Reworker Name Role Phone Steph Park COUNTER INTELLIGENCE AGENT Primary Care Provider Un available Encounter Details Date Type Department Care Team (Late st Contact Info) Description 12/10/2013 Documentation EM Family Medicine [address] [place], [place] [phone] Family Medicine, Physician [address] [place] [address] Social History Tobacco Use Types Packs/Day Years [...] on filedocumented in this encounter Care Teams Sample Shoe Inspector And Reworker Relationship Specialty Start Date End Date Steph Park NP PCP - General 10/20/16 05/11/23 documented as of this encounter
--- OUTSIDE RECORDS SUMMARY | 2024-07-15 13:20 | XMS_ITS | Encounter Summary ---
Author Organization [facility] Address [address] [place] [address] Phone Care Team Providers Care Installation Specialist Name Role Phone Steph Park RIGHT OF WAY MANAGER Primary Care Provider Un available Encounter Details Date Type Department Care Team (Late st Contact Info) Description 06/03/2012 Documentation EM Family Medicine [address] [place], [place] [phone] Family Medicine, Physician [address] [place] [address] Social History Tobacco Use Types Packs/Day Years [...] on filedocumented in this encounter Care Teams Installation Specialist Relationship Specialty Start Date End Date Steph Park NP PCP - General 10/20/16 05/11/23 documented as of this encounter
--- OUTSIDE RECORDS SUMMARY | 2024-07-15 13:20 | XMS_ITS | Encounter Summary ---
Author Organization [facility] Address [address] [place] [address] Phone Care Team Providers Care Jack Spinner Name Role Phone Steph Park FISH BUTCHER Primary Care Provider Un available Encounter Details Date Type Department Care Team (Late st Contact Info) Description 06/03/2012 Documentation EM Family Medicine [address] [place], [place] [phone] Family Medicine, Physician [address] [place] [address] Social History Tobacco Use Types Packs/Day Years [...] on filedocumented in this encounter Care Teams Jack Spinner Relationship Specialty Start Date End Date Steph Park NP PCP - General 10/20/16 05/11/23 documented as of this encounter
--- OUTSIDE RECORDS SUMMARY | 2024-07-15 13:20 | XMS_ITS | Encounter Summary ---
Author Organization [facility] Address [address] [place] [address] Phone Care Team Providers Care Finishing Lab Technician Name Role Phone Steph Park SEALER AIRCRAFT Primary Care Provider Un available Encounter Details Date Type Department Care Team (Late st Contact Info) Description 07/31/2013 Documentation EM Family Medicine [address] [place], [place] [phone] Family Medicine, Physician [address] [place] [address] Social History Tobacco Use Types Packs/Day Years [...] on filedocumented in this encounter Care Teams Finishing Lab Technician Relationship Specialty Start Date End Date Steph Park NP PCP - General 10/20/16 05/11/23 documented as of this encounter
--- OUTSIDE RECORDS SUMMARY | 2024-07-15 13:20 | XMS_ITS | Encounter Summary ---
Author Organization [facility] Address [address] [place] [address] Phone Care Team Providers Care Multi Skilled Operator Name Role Phone Steph Park PET CREMATORY WORKER Primary Care Provider Un available Encounter Details Date Type Department Care Team (Late st Contact Info) Description 08/13/2014 Documentation EM Family Medicine [address] [place], [place] [phone] Family Medicine, Physician [address] [place] [address] Social History Tobacco Use Types Packs/Day Years [...] on filedocumented in this encounter Care Teams Multi Skilled Operator Relationship Specialty Start Date End Date Steph Park NP PCP - General 10/20/16 05/11/23 documented as of this encounter
--- OUTSIDE RECORDS SUMMARY | 2024-07-15 13:20 | XMS_ITS | Encounter Summary ---
Author Organization [facility] Address [address] [place] [address] Phone Care Team Providers Care Sales Enablement Specialist Name Role Phone Steph Park FRUIT AND VEGETABLE PACKER Primary Care Provider Un available Encounter Details Date Type Department Care Team (Late st Contact Info) Description 06/03/2012 Documentation EM Family Medicine [address] [place], [place] [phone] Family Medicine, Physician [address] [place] [address] Social History Tobacco Use Types Packs/Day Years [...] on filedocumented in this encounter Care Teams Sales Enablement Specialist Relationship Specialty Start Date End Date Steph Park NP PCP - General 10/20/16 05/11/23 documented as of this encounter
--- OUTSIDE RECORDS SUMMARY | 2024-07-15 13:20 | XMS_ITS | Encounter Summary ---
Author Organization [facility] Address [address] [place] [address] Phone Care Team Providers Care Bufferer Name Role Phone Steph Park SECONDARY SCHOOL REGISTRAR Primary Care Provider Un available Encounter Details Date Type Department Care Team (Late st Contact Info) Description 06/03/2012 Documentation EM Family Medicine [address] [place], [place] [phone] Family Medicine, Physician [address] [place] [address] Social History Tobacco Use Types Packs/Day Years [...] on filedocumented in this encounter Care Teams Bufferer Relationship Specialty Start Date End Date Steph Park NP PCP - General 10/20/16 05/11/23 documented as of this encounter
--- OUTSIDE RECORDS SUMMARY | 2024-07-15 13:20 | XMS_ITS | Encounter Summary ---
Author Organization [facility] Address [address] [place] [address] Phone Care Team Providers Care Manager Family Name Role Phone Steph Park AIRPLANE GAS TANK LINER ASSEMBLER Primary Care Provider Un available Encounter Details Date Type Department Care Team (Late st Contact Info) Description 06/03/2012 Documentation EM Family Medicine [address] [place], [place] [phone] Family Medicine, Physician [address] [place] [address] Social History Tobacco Use Types Packs/Day Years [...] filedocumented in this encounter Care Teams Manager Family Relationship Specialty Start Date End Date Steph Park NP PCP - General 10/20/16 05/11/23 documented as of this encounter
--- OUTSIDE RECORDS SUMMARY | 2024-07-15 13:20 | XMS_ITS | Encounter Summary ---
Author Organization [facility] Address [address] [place] [address] Phone Care Team Providers Care Crystal Lapper Name Role Phone Steph Park CONTACT CENTER MANAGER Primary Care Provider Un available Encounter Details Date Type Department Care Team (Late st Contact Info) Description 09/30/2015 Documentation EM Family Medicine [facility] [address] [place], [place] [phone] Family Medicine, Physician [address] [place] [address] Social History Tobacco Use Types Packs/Day Years [...] on filedocumented in this encounter Care Teams Crystal Lapper Relationship Specialty Start Date End Date Steph Park NP PCP - General 10/20/16 05/11/23 documented as of this encounter
--- OUTSIDE RECORDS SUMMARY | 2024-07-15 13:20 | XMS_ITS | Encounter Summary ---
Author Organization [facility] Address [address] [place] [address] Phone Care Team Providers Care Team Assembly Line Machine Operator Name Role Phone Steph Park NUCLEAR WORKER TECHNICIAN Primary Care Provider Un available Encounter Details Date Type Department Care Team (Late st Contact Info) Description 03/20/2012 Documentation EM Family Medicine [address] [place], [place] [phone] Family Medicine, Physician [address] [place] [address] Social History Tobacco Use Types Packs/Day Years [...] on filedocumented in this encounter Care Teams Team Assembly Line Machine Operator Relationship Specialty Start Date End Date Steph Park NP PCP - General 10/20/16 05/11/23 documented as of this encounter
--- OUTSIDE RECORDS SUMMARY | 2024-07-15 13:20 | XMS_ITS | Encounter Summary ---
Author Organization [facility] Address [address] [place] [address] Phone Care Team Providers Care Expeditionary Force Combat Skills Name Role Phone Steph Park CLAMP CARRIER OPERATOR Primary Care Provider Un available Encounter Details Date Type Department Care Team (Late st Contact Info) Description 11/20/2014 Documentation EM Family Medicine [facility] [address] [place], [place] [phone] Family Medicine, Physician [address] [place] [address] Social History Tobacco Use Types Packs/Day Years [...] on filedocumented in this encounter Care Teams Expeditionary Force Combat Skills Relationship Specialty Start Date End Date Steph Park NP PCP - General 10/20/16 05/11/23 documented as of this encounter
--- OUTSIDE RECORDS SUMMARY | 2024-07-15 13:20 | XMS_ITS | Encounter Summary ---
Author Organization [facility] Address [address] [place] [address] Phone Care Team Providers Care Software Team Leader Name Role Phone Steph Park NP Primary Care Provider Un available Encounter Details Date Type Department Care Team (Late st Contact Info) Description 10/26/2016 Conversion Encounter [facility] - [address] [address] Social History Tobacco Use Types Packs/Day Years [...] on filedocumented in this encounter Care Teams Software Team Leader Relationship Specialty Start Date End Date Steph Park NP PCP - General 10/20/16 05/11/23 documented as of this encounter
--- OUTSIDE RECORDS SUMMARY | 2024-07-15 13:20 | XMS_ITS | Encounter Summary ---
Author Organization [facility] Address [address] [place] [address] Phone Care Team Providers Care Beverage Host Name Role Phone Steph Park MUSIC EDUCATION DIRECTOR Primary Care Provider Un available Encounter Details Date Type Department Care Team (Late st Contact Info) Description 06/03/2012 Documentation EM Family Medicine [address] [place], [place] [phone] Family Medicine, Physician [address] [place] [address] Social History Tobacco Use Types Packs/Day Years [...] on filedocumented in this encounter Care Teams Beverage Host Relationship Specialty Start Date End Date Steph Park NP PCP - General 10/20/16 05/11/23 documented as of this encounter
--- OUTSIDE RECORDS SUMMARY | 2024-07-15 13:20 | XMS_ITS | Encounter Summary ---
Author Organization [facility] Address [address] [place] [address] Phone Care Team Providers Care Ore Mixer Name Role Phone Steph Park PROTECTIVE CLOTHING ISSUER Primary Care Provider Un available Encounter Details Date Type Department Care Team (Late st Contact Info) Description 06/03/2012 Documentation EM Family Medicine [address] [place], [place] [phone] Family Medicine, Physician [address] [place] [address] Social History Tobacco Use Types Packs/Day Years [...] on filedocumented in this encounter Care Teams Ore Mixer Relationship Specialty Start Date End Date Steph Park NP PCP - General 10/20/16 05/11/23 documented as of this encounter
--- OUTSIDE RECORDS SUMMARY | 2024-07-15 13:20 | XMS_ITS | Encounter Summary ---
Author Organization [facility] Address [address] [place] [address] Phone Care Team Providers Care Curing Oven Attendant Name Role Phone Steph Park HYDRAULIC SPECIALIST Primary Care Provider Un available Encounter Details Date Type Department Care Team (Late st Contact Info) Description 11/27/2012 Documentation EM Family Medicine [address] [place], [place] [phone] Family Medicine, Physician [address] [place] [address] Social History Tobacco Use Types Packs/Day Years [...] on filedocumented in this encounter Care Teams Curing Oven Attendant Relationship Specialty Start Date End Date Steph Park NP PCP - General 10/20/16 05/11/23 documented as of this encounter
--- OUTSIDE RECORDS SUMMARY | 2024-07-15 13:20 | XMS_ITS | Encounter Summary ---
Author Organization [facility] Address [address] [place] [address] Phone Care Team Providers Care Bridge Contractor Name Role Phone Steph Park CHILD CARE TEAM LEAD Primary Care Provider Un available Encounter Details Date Type Department Care Team (Late st Contact Info) Description 06/03/2012 Documentation EM Family Medicine [address] [place], [place] [phone] Family Medicine, Physician [address] [place] [address] Social History Tobacco Use Types Packs/Day Years [...] on filedocumented in this encounter Care Teams Bridge Contractor Relationship Specialty Start Date End Date Steph Park NP PCP - General 10/20/16 05/11/23 documented as of this encounter
--- OUTSIDE RECORDS SUMMARY | 2024-07-15 13:20 | XMS_ITS | Encounter Summary ---
Author Organization [facility] Address [address] [place] [address] Phone Care Team Providers Care Automotive Electrical Helper Name Role Phone Steph Park GORE CUTTER Primary Care Provider Un available Encounter Details Date Type Department Care Team (Late st Contact Info) Description 11/06/2012 Documentation EM Family Medicine [address] [place], [place] [phone] Family Medicine, Physician [address] [place] [address] Social History Tobacco Use Types Packs/Day Years [...] on filedocumented in this encounter Care Teams Automotive Electrical Helper Relationship Specialty Start Date End Date Steph Park NP PCP - General 10/20/16 05/11/23 documented as of this encounter
--- OUTSIDE RECORDS SUMMARY | 2024-07-15 13:20 | XMS_ITS | Encounter Summary ---
Author Organization [facility] Address [address] [place] [address] Phone Care Team Providers Care International Account Executive Name Role Phone Steph Park SKILLED HELPER Primary Care Provider Un available Encounter Details Date Type Department Care Team (Late st Contact Info) Description 11/27/2012 Documentation EM Family Medicine [address] [place], [place] [phone] Family Medicine, Physician [address] [place] [address] Social History Tobacco Use Types Packs/Day Years [...] on filedocumented in this encounter Care Teams International Account Executive Relationship Specialty Start Date End Date Steph Park NP PCP - General 10/20/16 05/11/23 documented as of this encounter
--- OUTSIDE RECORDS SUMMARY | 2024-07-15 13:20 | XMS_ITS | Encounter Summary ---
Author Organization [facility] Address [address] [place] [address] Phone Care Team Providers Care Auditor Internal Name Role Phone Steph Park CHEMICAL PREPARER Primary Care Provider Un available Encounter Details Date Type Department Care Team (Late st Contact Info) Description 11/27/2012 Documentation EM Family Medicine [address] [place], [place] [phone] Family Medicine, Physician [address] [place] [address] Social History Tobacco Use Types Packs/Day Years [...] on filedocumented in this encounter Care Teams Auditor Internal Relationship Specialty Start Date End Date Steph Park NP PCP - General 10/20/16 05/11/23 documented as of this encounter
--- OUTSIDE RECORDS SUMMARY | 2024-07-15 13:20 | XMS_ITS | Encounter Summary ---
Author Organization [facility] Address [address] [place] [address] Phone Care Team Providers Care Fisher Clam Name Role Phone Steph Park REPORTS ANALYSIS MANAGER Primary Care Provider Un available Encounter Details Date Type Department Care Team (Late st Contact Info) Description 06/03/2012 Documentation EM Family Medicine [address] [place], [place] [phone] Family Medicine, Physician [address] [place] [address] Social History Tobacco Use Types Packs/Day Years [...] on filedocumented in this encounter Care Teams Fisher Clam Relationship Specialty Start Date End Date Steph Park NP PCP - General 10/20/16 05/11/23 documented as of this encounter
--- OUTSIDE RECORDS SUMMARY | 2024-07-15 13:20 | XMS_ITS | Encounter Summary ---
Author Organization [facility] Address [address] [place] [address] Phone Care Team Providers Care Replacer Name Role Phone Steph Park SPIKE MACHINE HEATER Primary Care Provider Un available Encounter Details Date Type Department Care Team (Late st Contact Info) Description 06/04/2012 Documentation EM Family Medicine [address] [place], [place] [phone] Family Medicine, Physician [address] [place] [address] Social History Tobacco Use Types Packs/Day Years [...] on filedocumented in this encounter Care Teams Replacer Relationship Specialty Start Date End Date Steph Park NP PCP - General 10/20/16 05/11/23 documented as of this encounter
--- OUTSIDE RECORDS SUMMARY | 2024-07-15 13:20 | XMS_ITS | Encounter Summary ---
Author Organization [facility] Address [address] [place] [address] Phone Care Team Providers Care Developer Programmer Analyst Name Role Phone Steph Park UNIX ARCHITECT Primary Care Provider Un available Encounter Details Date Type Department Care Team (Late st Contact Info) Description 07/31/2013 Documentation EM Family Medicine [address] [place], [place] [phone] Family Medicine, Physician [address] [place] [address] Social History Tobacco Use Types Packs/Day Years [...] on filedocumented in this encounter Care Teams Developer Programmer Analyst Relationship Specialty Start Date End Date Steph Park NP PCP - General 10/20/16 05/11/23 documented as of this encounter
--- OUTSIDE RECORDS SUMMARY | 2024-07-15 13:20 | XMS_ITS | Encounter Summary ---
Author Organization [facility] Address [address] [place] [address] Phone Care Team Providers Care Cost Clerk Name Role Phone Steph Park CLINIC SPECIALIST Primary Care Provider Un available Encounter Details Date Type Department Care Team (Late st Contact Info) Description 12/10/2013 Documentation EM Family Medicine [address] [place], [place] [phone] Family Medicine, Physician [address] [place] [address] Social History Tobacco Use Types Packs/Day Years [...] on filedocumented in this encounter Care Teams Cost Clerk Relationship Specialty Start Date End Date Steph Park NP PCP - General 10/20/16 05/11/23 documented as of this encounter
--- OUTSIDE RECORDS SUMMARY | 2024-07-15 13:20 | XMS_ITS | Clinical Summary ---
Author Organization [facility] Address [address] [place] [address] Phone Care Team Providers Care Biodiesel Processing Technician Name Role Phone Unavailable Primary Care Provider [...] back on those daily. Discussed referral to supervisor shuttle veneering vs ENT given chronic congestion. If does [...]
--- OUTSIDE RECORDS SUMMARY | 2024-07-15 13:20 | XMS_ITS | Encounter Summary ---
Author Organization [facility] Address [address] [place] [address] Phone Care Team Providers Care Investment Accountant Name Role Phone Steph Park UNDERGROUND MINE MACHINERY MECHANIC Primary Care Provider Un available Encounter Details Date Type Department Care Team (Late st Contact Info) Description 09/30/2015 Documentation EM Family Medicine [facility] [address] [place], [place] [phone] Family Medicine, Physician [address] [place] [address] Social History Tobacco Use Types Packs/Day Years [...] on filedocumented in this encounter Care Teams Investment Accountant Relationship Specialty Start Date End Date Steph Park NP PCP - General 10/20/16 05/11/23 documented as of this encounter
--- OUTSIDE RECORDS SUMMARY | 2024-07-15 13:20 | XMS_ITS | Encounter Summary ---
Author Organization [facility] Address [address] [place] [address] Phone Care Team Providers Care Bridge Opener Name Role Phone Steph Park WATCH AND CLOCK MAKER AND REPAIRER Primary Care Provider Un available Encounter Details Date Type Department Care Team (Late st Contact Info) Description 08/13/2014 Documentation EM Family Medicine [address] [place], [place] [phone] Family Medicine, Physician [address] [place] [address] Social History Tobacco Use Types Packs/Day Years [...] filedocumented in this encounter Care Teams Bridge Opener Relationship Specialty Start Date End Date Steph Park NP PCP - General 10/20/16 05/11/23 documented as of this encounter
--- OUTSIDE RECORDS SUMMARY | 2024-07-15 13:20 | XMS_ITS | Encounter Summary ---
Author Organization [facility] Address [address] [place] [address] Phone Care Team Providers Care Acquisition Marketing Manager Name Role Phone Steph Park WELDING LEAD BURNER Primary Care Provider Un available Encounter Details Date Type Department Care Team (Late st Contact Info) Description 08/13/2014 Documentation EM Family Medicine [address] [place], [place] [phone] Family Medicine, Physician [address] [place] [address] Social History Tobacco Use Types Packs/Day Years [...] on filedocumented in this encounter Care Teams Acquisition Marketing Manager Relationship Specialty Start Date End Date Steph Park NP PCP - General 10/20/16 05/11/23 documented as of this encounter
--- OUTSIDE RECORDS SUMMARY | 2024-07-15 13:20 | XMS_ITS | Encounter Summary ---
Author Organization [facility] Address [address] [place] [address] Phone Care Team Providers Care Inner Tube Cutter Name Role Phone Steph Park PSYCHOLOGIST MILITARY PERSONNEL Primary Care Provider Un available Encounter Details Date Type Department Care Team (Late st Contact Info) Description 07/29/2013 Documentation EM Family Medicine [address] [place], [place] [phone] Family Medicine, Physician [address] [place] [address] Social History Tobacco Use Types Packs/Day Years [...] on filedocumented in this encounter Care Teams Inner Tube Cutter Relationship Specialty Start Date End Date Steph Park NP PCP - General 10/20/16 05/11/23 documented as of this encounter
== END 2024-07-15 12:29 | disposition home or self-care (01) ==
LOC: HO.HMCFM 11:40
PROVIDERS: PCP Nurse Practitioner Family; Visit Provider Nurse Practitioner Family
DX: J30.2 Other seasonal allergic rhinitis (principal)

== ENCOUNTER → 2024-07-15 11:39 | Outpatient (BNVA) | payer OTHER, SELFPAY | PROVIDERS: PCP Nurse Practitioner Family; Visit Provider Nurse Practitioner Family | DX: Z13.89 Encounter for screening for other disorder (principal) ==

== ENCOUNTER 2024-11-25 08:32 | Outpatient (AMB) | payer OTHER, SELFPAY ==
--- NOTE | 2024-11-25 08:43 | A.OFFPC_ITS ---
Vital Signs 11/25/24 09:06 Height 6 ft 2.5 in Weight 209 lb 2 oz BMI 26.5 BP 106/64 Blood Pressure Location Rt brachial Position Sitting Respiration 14 Pulse 54 Pulse Source Palpation Temp 98.3 F Temp Source Oral Pulse Oximetry (%) 95 Oxygen Delivery Method Room Air Intake Visit Reasons: right tonsil swelling Allergies shellfish derived Adverse Reaction (Intermediate, Verified 07/15/24 12:16) Hives Medication List - Last Reconciled 11/25/24 by Roselia De Los Santos CNP cetirizine (Zyrtec) 10 mg PO DAILY finasteride 1 mg PO DAILY fluticasone propionate 50 mcg/actuation (Flonase Allergy Relief) 2 sprays intranasal DAILY Tobacco use date assessed: 07/15/24 Dental Screening Dental Screen Date: 07/15/24 HPI HPI Comments History of Present Illness Details 24-year-old male presents with complaint s of swollen right tonsil. He notes occasional stiff through and hard to breathe. His symptoms have been ongoing since 05/2024. Flonase has been minimally effective with the swollen tonsil. He denies sore throat, fever, chills, fatigue, or weakness. 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[employer] Current occupational exposures/hazards: No Cognitive needs: No Hearing needs: No Vision needs: No Questionnaire Thrive Questionnaire Date Thrive assessed: 05/20/24 I am a: Patient What is your living situation today?: I have a steady place to live Within the past 12 months, did the food you bought not last and you didn't have the money to get more?: Never true Within the past 12 months, did you worry whether your food would run out before you got money to buy more?: Never true Do you have trouble paying for medicines?: No Do you have trouble getting transportation to medical appointments?: No Do you have trouble paying your heating and electricity bill?: No Do you have trouble taking care of your child, family member or friend?: No Do you have trouble with day-to-day activities such as bathing, preparing meals, shopping, managing finances, etc.?: No Are you currently unemployed and looking for a job?: No Are you interested in more education?: Yes Please select the resources that you would like help with: Education Currently or been in a relationship where the following occur: No concerns reported THRIVE Score: 0 CLARIBEL-7 AMB Questionnaire CLARIBEL-7 Date CLARIBEL - 7 assessed: 05/26/24 Source: Developed by Drs. Earl El, Edith Seaman, Markus España and colleagues, with an educational sunshine from [employer]. Review of Systems Const Details: Const Denies chills, Denies fatigue, Denies fever(s), Denies headache(s) and Denies weakness ENT Head is normocephalic Bilateral ear canal and TM are normal Nasal turbinates and oropharynx are pink and moist; tonsils without edema, erythema, enlargement, or exudates. No tenderness to palpation Sinuses are nontender with palpation No auricular or cervical lymphadenopathy Card Denies chest pain, Denies lightheadedness, Denies dyspnea and Denies other (Palpitations) Resp Denies cough, Denies dyspnea, Denies wheezing and Denies other ( shortness of breath) GI Denies abdominal pain, Denies melena, Denies hematochezia, Denies change in bowel habits, Denies dyspepsia and Denies nausea Denies hematuria and Denies dysuria Musc Denies abnormal gait, Denies myalgias, Denies arthralgias, Denies numbness and Denies tingling Skin/Breast Denies rash, Denies unusual bruising and Denies wounds Neuro Denies abnormal gait, Denies dizziness, Denies headache(s), Denies memory loss, Denies numbness, Denies Sensory deficit (Neuro), Denies tingling and Denies weakness Psych Denies anxiety, Denies depression, Denies memory loss Endo Denies cold intolerance, Denies fatigue, Denies heat intolerance, Denies polydipsia and Denies polyuria Aller/Immun Denies wheezing Physical exam (Primary Care) Vital Signs: Last Vital Signs Temp 98.3 F 11/25/24 09:06 Pulse 54 11/25/24 09:06 Resp 14 11/25/24 09:06 BP 106/64 11/25/24 09:06 Pulse Ox 95 11/25/24 09:06 Oxygen Delivery Method Room Air 11/25/24 09:06 BMI result Body Mass Index 26.5 Tobacco/Smoking Status: Tobacco use Status Tobacco use date assessed 07/15/24 11/25/24 08:48 Patient Tobacco Use Status Never used Tobacco 11/25/24 08:48 e-Cigarette/Vaping Use Never Used 11/25/24 08:48 Thrive Assessment: Date of Thrive Assessment Date Thrive assessed 05/20/24 11/25/24 08:48 Currently or been in a relationship where the following occur: No concerns reported Const Other: General: no acute distress and well developed Nutritional Appearance: well nourished Orientation/consciousness: patient oriented x3 HENMT Head is normocephalic Bilateral ear canal and TM are normal Nasal turbinates and oropharynx are pink and moist Sinuses are nontender with palpation No auricular or cervical lymphadenopathy Eyes General: appearance normal, both eyes and all related structures Pupils: Equal, round and reactive pupils present EOM: EOMs intact bilaterally Resp Effort & Inspection: normal respiratory effort Auscultation: clear to auscultation bilaterally Cardio Rate: regular rate Rhythm: regular rhythm Heart sounds: S1 normal heart sound present, S2 normal heart sound present, no gallops, no murmurs and no rubs GI Palpation (GI): No Abdominal aortic bruit present, Soft to palpation, nontender, No hepatosplenomegaly present and No Rebound tenderness present Auscultation: normal bowel sounds General: Yes no CVA tenderness Back/Spine/Pelvis Back: no CVA tenderness Cervical Spine: cervical ROM normal and No Cervical spine tenderness Thoracic/Lumbar Spine: thoraco-lumbar ROM normal, No pain with thoraco-lumbar ROM, No thoracic spinal tenderness and No lumbar spinal tenderness Extrem General: Yes normal to inspection, No edema and No calf tenderness Skin General: warm and dry. Normal skin color. Normal skin turgor Neuro General: patient oriented x3, gait normal and no focal neuro deficit Cranial nerves: Yes Equal, round and reactive pupils present Cognition (Neuro): normal cognition Gait exam (Neuro): Normal gait present Sensory Exam: No Sensory deficit (Neuro) Psych Appearance: grossly normal Affect: normal affect Attitude: cooperative Thought process: Normal thought process present Coding Level of Care Code Est Pt Level 3 (68384) Diagnoses Enlarged tonsils J35.1 Assessment & Plan Assessment & Plan (1) Enlarged tonsils: Code(s): J35.1 - Hypertrophy of tonsils Category: Medical Plan: Patient presents with complaints of swollen right tonsil. He notes occasional stiff through and hard to breathe. His symptoms have been ongoing since 05/2024. Flonase has been minimally effective with the swollen tonsil. He denies sore throat, fever, chills, fatigue, or weakness. Tonsils without edema, erythema, enlargement, or exudates. No tenderness to palpation. No auricular or cervical lymphadenopathy. Continue to take cetirizine and use Flonase as prescribed. Referred to ENT. Return with worsening or new symptoms. Verbalized understanding and agreed with the plan. Orders: Referrals Ear/Nose/Throat Referral J35.1 - Hypertrophy of tonsils
[2024-11-25 09:06] VITALS: BP 106/64; PULSE 54; RESP 14; TEMP 36.8; O2SAT 95; BMI 26.5
--- OUTSIDE RECORDS SUMMARY | 2024-11-25 10:12 | XMS_ITS | Encounter Summary ---
Author Organization [facility] Address [address] [place] [address] Phone Care Team Providers Care Service Worker Helper Name Role Phone Steph Park PUBLIC RELATIONS SPECIALIST Primary Care Provider Un available Encounter Details Date Type Department Care Team (Late st Contact Info) Description 06/03/2012 Documentation EM Family Medicine [address] [place], [place] [phone] Family Medicine, Physician [address] [place] [address] Social History Tobacco Use Types Packs/Day Years [...] on filedocumented in this encounter Care Teams Service Worker Helper Relationship Specialty Start Date End Date Steph Park NP PCP - General 10/20/16 05/11/23 documented as of this encounter
--- OUTSIDE RECORDS SUMMARY | 2024-11-25 10:12 | XMS_ITS | Clinical Summary ---
Author Organization [facility] Address [address] [place] [address] Phone Care Team Providers Care Sr Vice President Name Role Phone Unavailable Primary Care Provider [...] back on those daily. Discussed referral to slasher runner vs ENT given chronic congestion. If does [...] 59 10/12/2017 1:42 PM EDT Temperature 36.3 C (97.3 F) 12/22/2016 4:22 PM EDT Respiratory Rate - - Oxygen Saturation - [...] 05/31/2022 05/31/2012, 06/22/2009, 05/06/2009 Influenza Vaccines (#1) 2024 12/19/19 20, 12/22/2016, 12/08/2013, Additional history exists COVID-19 Vaccine ( season) 2024 08/01/2020, 07/04/2020 MMR Vaccines Completed 12/31/2008, 10/13/2008 [...]
--- OUTSIDE RECORDS SUMMARY | 2024-11-25 10:12 | XMS_ITS | Encounter Summary ---
Author Organization [facility] Address [address] [place] [address] Phone Care Team Providers Care Handle Attacher Name Role Phone Steph Park PMP PROJECT MANAGER Primary Care Provider Un available Encounter Details Date Type Department Care Team (Late st Contact Info) Description 03/20/2012 Documentation EM Family Medicine [address] [place], [place] [phone] Family Medicine, Physician [address] [place] [address] Social History Tobacco Use Types Packs/Day Years [...] on filedocumented in this encounter Care Teams Handle Attacher Relationship Specialty Start Date End Date Steph Park NP PCP - General 10/20/16 05/11/23 documented as of this encounter
--- OUTSIDE RECORDS SUMMARY | 2024-11-25 10:12 | XMS_ITS | Encounter Summary ---
Author Organization [facility] Address [address] [place] [address] Phone Care Team Providers Care Evaporator Helper Name Role Phone Steph Park MEDICAL CHEMIST Primary Care Provider Un available Encounter Details Date Type Department Care Team (Late st Contact Info) Description 11/20/2014 Documentation EM Family Medicine [facility] [address] [place], [place] [phone] Family Medicine, Physician [address] [place] [address] Social History Tobacco Use Types Packs/Day Years [...] on filedocumented in this encounter Care Teams Evaporator Helper Relationship Specialty Start Date End Date Steph Park NP PCP - General 10/20/16 05/11/23 documented as of this encounter
--- OUTSIDE RECORDS SUMMARY | 2024-11-25 10:12 | XMS_ITS | Encounter Summary ---
Author Organization [facility] Address [address] [place] [address] Phone Care Team Providers Care Java Development Team Lead Name Role Phone Steph Park FLOORWORKER LASTING Primary Care Provider Un available Encounter Details Date Type Department Care Team (Late st Contact Info) Description 06/04/2012 Documentation EM Family Medicine [address] [place], [place] [phone] Family Medicine, Physician [address] [place] [address] Social History Tobacco Use Types Packs/Day Years [...] on filedocumented in this encounter Care Teams Java Development Team Lead Relationship Specialty Start Date End Date Steph Park NP PCP - General 10/20/16 05/11/23 documented as of this encounter
--- OUTSIDE RECORDS SUMMARY | 2024-11-25 10:12 | XMS_ITS | Encounter Summary ---
Author Organization [facility] Address [address] [place] [address] Phone Care Team Providers Care Ring Packer Name Role Phone Steph Park DRUM HANDLER Primary Care Provider Un available Encounter Details Date Type Department Care Team (Late st Contact Info) Description 09/30/2015 Documentation EM Family Medicine [facility] [place] [address] Family Medicine, Physician [address] [place] [address] Social History Tobacco Use Types Packs/Day Years [...] on filedocumented in this encounter Care Teams Ring Packer Relationship Specialty Start Date End Date Steph Park NP PCP - General 10/20/16 05/11/23 documented as of this encounter
--- OUTSIDE RECORDS SUMMARY | 2024-11-25 10:12 | XMS_ITS | Encounter Summary ---
Author Organization [facility] Address [address] [place] [address] Phone Care Team Providers Care Medical Lab Scientist Name Role Phone Steph Park PLASTERER SPOT Primary Care Provider Un available Encounter Details Date Type Department Care Team (Late st Contact Info) Description 06/03/2012 Documentation EM Family Medicine [address] [place], [place] [phone] Family Medicine, Physician [address] [place] [address] Social History Tobacco Use Types Packs/Day Years [...] on filedocumented in this encounter Care Teams Medical Lab Scientist Relationship Specialty Start Date End Date Steph Park NP PCP - General 10/20/16 05/11/23 documented as of this encounter
--- OUTSIDE RECORDS SUMMARY | 2024-11-25 10:12 | XMS_ITS | Clinical Summary ---
Author Organization [facility] Address [address] [place] [address] Phone Care Team Providers Care Hand Cloth Folder Name Role Phone Roselia De Los Santos EQUIPMENT SERVICE LEAD Primary Care Provider [phone] Allergies No known active allergies Medications sertraline (ZOLOFT) 50 MG tablet Take 1 tablet by mouth every morning. 3 Active cetirizine (ZYRTEC) 10 MG tablet Take 10 mg by mouth daily. Active NIFEdipine-lido philip 0.3%-5% topical ointment Place 1 Application rectally 3 (three) times a day as needed for discomfort. Apply pea sized amount TID to affected area as directed. 30 g 3 Active Additional Information Patient not taking.Reported on 05/29/2024 Active Problems Problem Noted Date Diagnosed Date Allergic rhinitis 07/29/2013 12/29/2022 Overview (12/29/2022): Has used cetrizine and flonase for this but more sporatically than daily. Symptoms do seem improved if used more regularly. In the past pt has been seen by ENT and mom was told tissue was thick and surgery was recommended around age 8 but this was deferred, since sx still so ongoing mom requesting pt be seen by ENT again, referral made. Last Assessment & Plan: Has done better with regular use of flonase and zyrtec, encouraged to get back on those daily. Discussed referral to prototype special build vs ENT given chronic congestion. If does not improve with daily medication (discussed ways to remember to take nightly) then would refer to specialist. Autistic disorder of childhood onset 07/29/2013 12/29/2022 Overview (12/29/2022): Last Assessment & Plan: Stable, doing well, continue to be involved in activities and in school. Social History Tobacco Use Types Packs/Day Years Used Date Smoking Tobacco: Never Smokeless Tobacco: Never Tobacco Cessation:Counseling Given: Not Answered Alcohol Use Standard Drinks/Week Comments Yes 0 (1 standard drink = 0.6 oz pur e alcohol) Occassionally Education Answer Date Recorded Are you interested in more education? Not on codi e 09/06/2022 Are you concerned about learning? Not on file 09/06/2022 No 09/06/2022 No 09/06/2022 Digital Access Answer Date Recorded No 09/06/2022 No 09/06/2022 Reliable internet access at home? Not on file 09/06/2022 Device with a working camera? Not on file Intimate Partner Violence Answer Date R ecorded Are you denied basic needs s uch as food, clothing, or medical care? No 06/07/2024 In the past 12 months have y ou been in a relationship with a person who hurts, threatens, or tries to control you? No 06/07/2024 Are you denied basic needs s uch as food, clothing, or medical care? No 06/07/2024 In the past 12 months have y ou been in a relationship with a person who hurts, threatens, or tries to control you? No 06/07/2024 Sex and Gender Information Value Date Recorded Sex Assigned at Not on file Legal Sex Male 7:58 AM EDT Gender Identity Not on file Sexual Orientation Straight 09/06/2022 8: 06 AM EDT Last Filed Vital Signs Vital Sign Reading Time Taken Comments Blood Pressure 100/62 06/08/2024 3:04 AM EDT Pulse 57 06/08/2024 3:04 AM EDT Temperature 36.2 C (97.2 F) 06/08/2024 3:04 AM EDT Respiratory Rate 18 06/08/2024 3:04 AM EDT Oxygen Saturation 98% 06/08/2024 3:04 AM EDT Inhaled Oxygen Concentration - - Weight 96 kg (211 lb 9.6 oz) 06/07/2024 11:52 PM EDT Height 189.2 cm (6' 2.49 ) 06/07/2024 11:52 PM E DT Body Mass Index 26.81 06/07/2024 11:52 PM EDT Plan of Treatment Health Maintenance Due Date Last Done Comments DEPRESSION SCREENING 2012 HPV VACCINES (1 - Male 3-dos e series) 2015 HEPATITIS C SCREENING 2018 HIV ONE-TIME SCREENING (18-6 5 YEARS) 2018 Adult Td,Tdap Booster 05/31/2022 05/31/2012 INFLUENZA VACCINE (#1) 2024 COVID-19 VACCINE (1 - 2023-2 5 season) 2024 SMOKING Hx and SMOKELESS TOB ACCO SCREENING 05/29/2025 05/29/2024 HEPATITIS A VACCINES Aged Out No long er eligible based on patient's age to complete this topic HIB VACCINES Aged Out No longer eligi ble based on patient's age to complete this topic MENINGOCOCCAL VACCINES (ACWY) Aged Out No longer eligible based on patient's age to complete this topic MENINGOCOCCAL VACCINES (B) Aged Out N o longer eligible based on patient's age to complete this topic PNEUMOCOCCAL VACCINES (0-49 years) Aged Out No longer eligible based on patient's age to complete this topic Medical Devices Not on file Insurance CARE Care Teams Hand Cloth Folder Relationship Specialty Start Date End Date Roselia De Los Santos NP [address] [place] [address] PCP - General Nurse Practitioner 06/08/24 Additional Source Comments The information contained in this document represents components of the legal health record. It is not the complete legal health record.[facility]
--- OUTSIDE RECORDS SUMMARY | 2024-11-25 10:12 | XMS_ITS | Encounter Summary ---
Author Organization [facility] Address [address] [place] [address] Phone Care Team Providers Care Gas Dispatcher Name Role Phone Steph Park BICYCLE REPAIRMAN Primary Care Provider Un available Encounter Details Date Type Department Care Team (Late st Contact Info) Description 09/30/2015 Documentation EM Family Medicine [facility] [place] [address] Family Medicine, Physician [address] [place] [address] Social History Tobacco Use Types Packs/Day Years [...] on filedocumented in this encounter Care Teams Gas Dispatcher Relationship Specialty Start Date End Date Steph Park NP PCP - General 10/20/16 05/11/23 documented as of this encounter
--- OUTSIDE RECORDS SUMMARY | 2024-11-25 10:12 | XMS_ITS | Encounter Summary ---
Author Organization [facility] Address [address] [place] [address] Phone Care Team Providers Care Mobile Ui Developer Name Role Phone Steph Park [employer] HAZMAT TANKER DRIVER Primary Care Provider Un available Encounter Details Date Type Department Care Team (Late st Contact Info) Description 03/20/2012 Documentation EM Family Medicine [address] [place], [place] [phone] Family Medicine, Physician [address] [place] [address] Social History Tobacco Use Types Packs/Day Years [...] on filedocumented in this encounter Care Teams Mobile Ui Developer Relationship Specialty Start Date End Date Steph Park NP PCP - General 10/20/16 05/11/23 documented as of this encounter
--- OUTSIDE RECORDS SUMMARY | 2024-11-25 10:12 | XMS_ITS | Encounter Summary ---
Author Organization [facility] Address [address] [place] [address] Phone Care Team Providers Care Reconciliation Machine Operator Name Role Phone Steph Park WEB APPLICATIONS DEVELOPER Primary Care Provider Un available Encounter Details Date Type Department Care Team (Late st Contact Info) Description 12/10/2013 Documentation EM Family Medicine [address] [place], [place] [phone] Family Medicine, Physician [address] [place] [address] Social History Tobacco Use Types Packs/Day Years [...] on filedocumented in this encounter Care Teams Reconciliation Machine Operator Relationship Specialty Start Date End Date Steph Park NP PCP - General 10/20/16 05/11/23 documented as of this encounter
--- OUTSIDE RECORDS SUMMARY | 2024-11-25 10:12 | XMS_ITS | Encounter Summary ---
Author Organization [facility] Address [address] [place] [address] Phone Care Team Providers Care Financial Services Internship Name Role Phone Steph Park EXECUTIVE SALES ASSISTANT Primary Care Provider Un available Encounter Details Date Type Department Care Team (Late st Contact Info) Description 11/06/2012 Documentation EM Family Medicine [address] [place] [address] Family Medicine, Physician [address] [place] [address] Social History Tobacco Use Types Packs/Day Years [...] on filedocumented in this encounter Care Teams Financial Services Internship Relationship Specialty Start Date End Date Steph Park NP PCP - General 10/20/16 05/11/23 documented as of this encounter
--- OUTSIDE RECORDS SUMMARY | 2024-11-25 10:12 | XMS_ITS | Encounter Summary ---
Author Organization [facility] Address [address] [place] [address] Phone Care Team Providers Care Block Placer Name Role Phone Steph Park SHOP WELDER Primary Care Provider Un available Encounter Details Date Type Department Care Team (Late st Contact Info) Description 07/31/2013 Documentation EM Family Medicine [address] [place], [place] [phone] Family Medicine, Physician [address] [place] [address] Social History Tobacco Use Types Packs/Day Years [...] on filedocumented in this encounter Care Teams Block Placer Relationship Specialty Start Date End Date Steph Park NP PCP - General 10/20/16 05/11/23 documented as of this encounter
--- OUTSIDE RECORDS SUMMARY | 2024-11-25 10:12 | XMS_ITS | Encounter Summary ---
Author Organization [facility] Address [address] [place] [address] Phone Care Team Providers Care Cotton Stripper Name Role Phone Steph Park FIBERGLASS BOAT FINISHER Primary Care Provider Un available Encounter Details Date Type Department Care Team (Late st Contact Info) Description 07/29/2013 Documentation EM Family Medicine [address] [place], [place] [phone] Family Medicine, Physician [address] [place] [address] Social History Tobacco Use Types Packs/Day Years [...] on filedocumented in this encounter Care Teams Cotton Stripper Relationship Specialty Start Date End Date Steph Park NP PCP - General 10/20/16 05/11/23 documented as of this encounter
--- OUTSIDE RECORDS SUMMARY | 2024-11-25 10:12 | XMS_ITS | Encounter Summary ---
Author Organization [facility] Address [address] [place] [address] Phone Care Team Providers Care Geothermal Field Technician Name Role Phone Steph Park [place] AUDITOR Primary Care Provider Un available Encounter Details Date Type Department Care Team (Late st Contact Info) Description 11/27/2012 Documentation EM Family Medicine [address] [place], [place] [phone] Family Medicine, Physician [address] [place] [address] Social History Tobacco Use Types Packs/Day Years [...] on filedocumented in this encounter Care Teams Geothermal Field Technician Relationship Specialty Start Date End Date Steph Park NP PCP - General 10/20/16 05/11/23 documented as of this encounter
--- OUTSIDE RECORDS SUMMARY | 2024-11-25 10:12 | XMS_ITS | Encounter Summary ---
Author Organization [facility] Address [address] [place] [address] Phone Care Team Providers Care Boarding Specialist Name Role Phone Steph Park CLINICAL EDITOR Primary Care Provider Un available Encounter Details Date Type Department Care Team (Late st Contact Info) Description 05/22/2012 Documentation EM Family Medicine [address] [place], [place] [phone] Family Medicine, Physician [address] [place] [address] Social History Tobacco Use Types Packs/Day Years [...] on filedocumented in this encounter Care Teams Boarding Specialist Relationship Specialty Start Date End Date Steph Park NP PCP - General 10/20/16 05/11/23 documented as of this encounter
--- OUTSIDE RECORDS SUMMARY | 2024-11-25 10:12 | XMS_ITS | Encounter Summary ---
Author Organization [facility] Address [address] [place] [address] Phone Care Team Providers Care Meter/Relay Technician Name Role Phone Steph Park SAW MAKER Primary Care Provider Un available Encounter Details Date Type Department Care Team (Late st Contact Info) Description 08/13/2014 Documentation EM Family Medicine [address] [place], [place] [phone] Family Medicine, Physician [address] [place] [address] Social History Tobacco Use Types Packs/Day Years [...] on filedocumented in this encounter Care Teams Meter/Relay Technician Relationship Specialty Start Date End Date Steph Park NP PCP - General 10/20/16 05/11/23 documented as of this encounter
--- OUTSIDE RECORDS SUMMARY | 2024-11-25 10:12 | XMS_ITS | Encounter Summary ---
Author Organization [facility] Address [address] [place] [address] Phone Care Team Providers Care Manager E Learning Name Role Phone Steph Park SENIOR CENTER DIRECTOR Primary Care Provider Un available Encounter Details Date Type Department Care Team (Late st Contact Info) Description 06/03/2012 Documentation EM Family Medicine [address] [place], [place] [phone] Family Medicine, Physician [address] [place] [address] Social History Tobacco Use Types Packs/Day Years [...] filedocumented in this encounter Care Teams Manager E Learning Relationship Specialty Start Date End Date Steph Park NP PCP - General 10/20/16 05/11/23 documented as of this encounter
--- OUTSIDE RECORDS SUMMARY | 2024-11-25 10:12 | XMS_ITS | Encounter Summary ---
Author Organization [facility] Address [address] [place] [address] Phone Care Team Providers Care Development Coordinator Name Role Phone Steph Park UNDERWRITING SUPPORT SPECIALIST Primary Care Provider Un available Encounter Details Date Type Department Care Team (Late st Contact Info) Description 06/03/2012 Documentation EM Family Medicine [address] [place], [place] [phone] Family Medicine, Physician [address] [place] [address] Social History Tobacco Use Types Packs/Day Years [...] on filedocumented in this encounter Care Teams Development Coordinator Relationship Specialty Start Date End Date Steph Park NP PCP - General 10/20/16 05/11/23 documented as of this encounter
--- OUTSIDE RECORDS SUMMARY | 2024-11-25 10:12 | XMS_ITS | Encounter Summary ---
Author Organization [facility] Address [address] [place] [address] Phone Care Team Providers Care Business Applications Specialist Name Role Phone Steph Park CHILD SPECIALIST Primary Care Provider Un available Encounter Details Date Type Department Care Team (Late st Contact Info) Description 07/31/2013 Documentation EM Family Medicine [address] [place], [place] [phone] Family Medicine, Physician [address] [place] [address] Social History Tobacco Use Types Packs/Day Years [...] on filedocumented in this encounter Care Teams Business Applications Specialist Relationship Specialty Start Date End Date Steph Park NP PCP - General 10/20/16 05/11/23 documented as of this encounter
--- OUTSIDE RECORDS SUMMARY | 2024-11-25 10:12 | XMS_ITS | Encounter Summary ---
Author Organization [facility] Address [address] [place] [address] Phone Care Team Providers Care Senior Reactor Operator Name Role Phone Steph Park ASSEMBLY MEMBER Primary Care Provider Un available Encounter Details Date Type Department Care Team (Late st Contact Info) Description 06/03/2012 Documentation EM Family Medicine [address] [place], [place] [phone] Family Medicine, Physician [address] [place] [address] Social History Tobacco Use Types Packs/Day Years [...] on filedocumented in this encounter Care Teams Senior Reactor Operator Relationship Specialty Start Date End Date Steph Park NP PCP - General 10/20/16 05/11/23 documented as of this encounter
--- OUTSIDE RECORDS SUMMARY | 2024-11-25 10:12 | XMS_ITS | Encounter Summary ---
Author Organization [facility] Address [address] [place] [address] Phone Care Team Providers Care Plaster Pattern Caster Name Role Phone Steph aPrk DITCHER Primary Care Provider Un available Encounter Details Date Type Department Care Team (Late st Contact Info) Description 08/13/2014 Documentation EM Family Medicine [address] [place], [place] [phone] Family Medicine, Physician [address] [place] [address] Social History Tobacco Use Types Packs/Day Years [...] on filedocumented in this encounter Care Teams Plaster Pattern Caster Relationship Specialty Start Date End Date Steph Park NP PCP - General 10/20/16 05/11/23 documented as of this encounter
--- OUTSIDE RECORDS SUMMARY | 2024-11-25 10:12 | XMS_ITS | Encounter Summary ---
Author Organization [facility] Address [address] [place] [address] Phone Care Team Providers Care Foiling Machine Adjuster Name Role Phone Steph Park NP Primary Care Provider Un available Encounter Details Date Type Department Care Team (Late st Contact Info) Description 10/26/2016 Conversion Encounter [facility] - [address] [address] Social History Tobacco Use Types Packs/Day Years [...] on filedocumented in this encounter Care Teams Foiling Machine Adjuster Relationship Specialty Start Date End Date Steph Park NP PCP - General 10/20/16 05/11/23 documented as of this encounter
--- OUTSIDE RECORDS SUMMARY | 2024-11-25 10:12 | XMS_ITS | Encounter Summary ---
Author Organization [facility] Address [address] [place] [address] Phone Care Team Providers Care Gun Welder Name Role Phone Steph Park CLEARING HAND Primary Care Provider Un available Encounter Details Date Type Department Care Team (Late st Contact Info) Description 08/13/2014 Documentation EM Family Medicine [address] [place], [place] [phone] Family Medicine, Physician [address] [place] [address] Social History Tobacco Use Types Packs/Day Years [...] on filedocumented in this encounter Care Teams Gun Welder Relationship Specialty Start Date End Date Steph Park NP PCP - General 10/20/16 05/11/23 documented as of this encounter
--- OUTSIDE RECORDS SUMMARY | 2024-11-25 10:12 | XMS_ITS | Encounter Summary ---
Author Organization [facility] Address [address] [place] [address] Phone Care Team Providers Care Diesel Dinkey Engineer Name Role Phone Steph Park NUTRITION AIDE Primary Care Provider Un available Encounter Details Date Type Department Care Team (Late st Contact Info) Description 11/27/2012 Documentation EM Family Medicine [address] [place], [place] [phone] Family Medicine, Physician [address] [place] [address] Social History Tobacco Use Types Packs/Day Years [...] on filedocumented in this encounter Care Teams Diesel Dinkey Engineer Relationship Specialty Start Date End Date Steph Park NP PCP - General 10/20/16 05/11/23 documented as of this encounter
--- OUTSIDE RECORDS SUMMARY | 2024-11-25 10:12 | XMS_ITS | Encounter Summary ---
Author Organization [facility] Address [address] [place] [address] Phone Care Team Providers Care Credit Office Manager Name Role Phone Steph Park HEAD WAITER/WAITRESS Primary Care Provider Un available Encounter Details Date Type Department Care Team (Late st Contact Info) Description 06/03/2012 Documentation EM Family Medicine [address] [place], [place] [phone] Family Medicine, Physician [address] [place] [address] Social History Tobacco Use Types Packs/Day Years [...] on filedocumented in this encounter Care Teams Credit Office Manager Relationship Specialty Start Date End Date Steph Park NP PCP - General 10/20/16 05/11/23 documented as of this encounter
--- OUTSIDE RECORDS SUMMARY | 2024-11-25 10:12 | XMS_ITS | Encounter Summary ---
Author Organization [facility] Address [address] [place] [address] Phone Care Team Providers Care Medical Research Scientist Name Role Phone Steph Park TAX AUDITOR Primary Care Provider Un available Encounter Details Date Type Department Care Team (Late st Contact Info) Description 11/27/2012 Documentation EM Family Medicine [address] [place], [place] [phone] Family Medicine, Physician [address] [place] [address] Social History Tobacco Use Types Packs/Day Years [...] filedocumented in this encounter Care Teams Medical Research Scientist Relationship Specialty Start Date End Date Steph Park NP PCP - General 10/20/16 05/11/23 documented as of this encounter
--- OUTSIDE RECORDS SUMMARY | 2024-11-25 10:12 | XMS_ITS | Encounter Summary ---
Author Organization [facility] Address [address] [place] [address] Phone Care Team Providers Care Bush Regenerator Name Role Phone Steph Park MEETING/EVENT PLANNER Primary Care Provider Un available Encounter Details Date Type Department Care Team (Late st Contact Info) Description 06/03/2012 Documentation EM Family Medicine [address] [place], [place] [phone] Family Medicine, Physician [address] [place] [address] Social History Tobacco Use Types Packs/Day Years [...] on filedocumented in this encounter Care Teams Bush Regenerator Relationship Specialty Start Date End Date Steph Park NP PCP - General 10/20/16 05/11/23 documented as of this encounter
--- OUTSIDE RECORDS SUMMARY | 2024-11-25 10:12 | XMS_ITS | Encounter Summary ---
Author Organization [facility] Address [address] [place] [address] Phone Care Team Providers Care Rail Car Painter/Sandblaster Name Role Phone Steph Park LIFT MANAGER Primary Care Provider Un available Encounter Details Date Type Department Care Team (Late st Contact Info) Description 12/10/2013 Documentation EM Family Medicine [address] [place], [place] [phone] Family Medicine, Physician [address] [place] [address] Social History Tobacco Use Types Packs/Day Years [...] on filedocumented in this encounter Care Teams Rail Car Painter/Sandblaster Relationship Specialty Start Date End Date Steph Park NP PCP - General 10/20/16 05/11/23 documented as of this encounter
--- OUTSIDE RECORDS SUMMARY | 2024-11-25 10:12 | XMS_ITS | Encounter Summary ---
Author Organization [facility] Address [address] [place] [address] Phone Care Team Providers Care Liquid Sugar Fortifier Name Role Phone Steph Park SUPERVISOR FURNACE PROCESS Primary Care Provider Un available Encounter Details Date Type Department Care Team (Late st Contact Info) Description 06/03/2012 Documentation EM Family Medicine [address] [place], [place] [phone] Family Medicine, Physician [address] [place] [address] Social History Tobacco Use Types Packs/Day Years [...] on filedocumented in this encounter Care Teams Liquid Sugar Fortifier Relationship Specialty Start Date End Date Steph Park NP PCP - General 10/20/16 05/11/23 documented as of this encounter
--- OUTSIDE RECORDS SUMMARY | 2024-11-25 10:12 | XMS_ITS | Encounter Summary ---
Author Organization [facility] Address [address] [place] [address] Phone Care Team Providers Care Manager Java Name Role Phone Steph Park MOTOR POLARIZER Primary Care Provider Un available Encounter Details Date Type Department Care Team (Late st Contact Info) Description 06/03/2012 Documentation EM Family Medicine [address] [place], [place] [phone] Family Medicine, Physician [address] [place] [address] Social History Tobacco Use Types Packs/Day Years [...] filedocumented in this encounter Care Teams Manager Java Relationship Specialty Start Date End Date Steph Park NP PCP - General 10/20/16 05/11/23 documented as of this encounter
== END 2024-11-25 09:05 | disposition home or self-care (01) ==
LOC: HO.HMCFM 08:33
PROVIDERS: PCP Nurse Practitioner Family; Visit Provider Nurse Practitioner Family
DX: J35.1 Hypertrophy of tonsils (principal)

== ENCOUNTER 2025-01-13 12:41 | Outpatient (AMB) | payer OTHER, SELFPAY ==
--- NOTE | 2025-01-13 12:52 | MHC.PC.OV ---
Vital Signs 01/13/25 12:56 Height 6 ft 2.5 in Weight 198 lb 2 oz BMI 25.1 BP 113/51 L Blood Pressure Location Rt brachial Position Sitting Respiration 16 Pulse 57 Pulse Source Pulse Oximeter Temp 98.1 F Temp Source Oral Pulse Oximetry (%) 98 Oxygen Delivery Method Room Air Intake Visit Reasons: pain in his left knee Intake Note: patient here c/o pain in his left knee since Sunday. Business Systems Lead Required: No Allergies shellfish derived Adverse Reaction (Intermediate, Verified 01/13/25 13:04) Hives Medication List - Last Reconciled 01/13/25 by Roselia De Los Santos CNP cetirizine (Zyrtec) 10 mg PO DAILY finasteride 1 mg PO DAILY fluticasone propionate 50 mcg/actuation (Flonase Allergy Relief) 2 sprays intranasal DAILY Tobacco use date assessed: 01/13/25 Dental Screening Dental Screen Date: 01/13/25 Did you have a dental visit in the last 12 months?: No Did you have a dental problem in the last 6 months where you did not have access to dental care?: No Was dental information given to patient?: Patient has dentist HPI HPI Comments History of Present Illness Details 24-year-old male presents with complaints of intermittent left knee pain for the past 5 days. He was ambulating to work and felt sudden shooting pain to his left knee. The shooting pain was brief. However, he continues to feel as though the knee feels tender and unstable. He denies fall, injury, or trauma. He denies tingling, numbness, or loss of sensation. He has not taking any medication for his symptoms. He continues to feel intermittent pain to the knee with persistent instability. He exercises/lifts weights regularly squats with 180 lb weight once a week; however, he has not exercise, liquid, squats since his symptoms started. He denies playing sports. 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 Earl El, Edith Seaman, Markus España and colleagues, with an educational sunshine from [employer]. Review of Systems Const Details: Const Denies chills, Denies fatigue, Denies fever(s), Denies headache(s) and Denies weakness ENT Denies dizziness and Denies headache(s) Card Denies chest pain, Denies lightheadedness, Denies dyspnea and Denies other (Palpitations) Resp Denies cough, Denies dyspnea, Denies wheezing and Denies other ( shortness of breath) GI Denies abdominal pain, Denies melena, Denies hematochezia, Denies change in bowel habits, Denies dyspepsia and Denies nausea Denies hematuria and Denies dysuria Musc Reports as per HPI Skin/Breast Denies rash, Denies unusual bruising and Denies wounds Neuro Denies abnormal gait, Denies dizziness, Denies headache(s), Denies memory loss, Denies numbness, Denies Sensory deficit (Neuro), Denies tingling and Denies weakness Psych Denies anxiety, Denies depression, Denies memory loss Endo Denies cold intolerance, Denies fatigue, Denies heat intolerance, Denies polydipsia and Denies polyuria Aller/Immun Denies wheezing Physical exam (Primary Care) Vital Signs: Last Vital Signs Temp 98.1 F 01/13/25 12:56 Pulse 57 01/13/25 12:56 Resp 16 01/13/25 12:56 BP 113/51 L 01/13/25 12:56 Pulse Ox 98 01/13/25 12:56 Oxygen Delivery Method Room Air 01/13/25 12:56 BMI result Body Mass Index 25.1 Tobacco/Smoking Status: Tobacco use Status Tobacco use date assessed 01/13/25 01/13/25 12:59 Patient Tobacco Use Status Never used Tobacco 01/13/25 12:54 e-Cigarette/Vaping Use Never Used 01/13/25 12:54 Thrive Assessment: Date of Thrive Assessment Date Thrive assessed 05/20/24 01/13/25 12:54 Const Other: General: no acute distress and well developed Nutritional Appearance: well nourished Orientation/consciousness: patient oriented x3 HENMT Head: Yes normocephalic and Yes atraumatic Eyes General: appearance normal, both eyes and all related structures Pupils: Equal, round and reactive pupils present EOM: EOMs intact bilaterally Resp Effort & Inspection: normal respiratory effort Auscultation: clear to auscultation bilaterally Cardio Rate: regular rate Rhythm: regular rhythm Heart sounds: S1 normal heart sound present, S2 normal heart sound present, no gallops, no murmurs and no rubs GI Palpation (GI): No Abdominal aortic bruit present, Soft to palpation, nontender, No hepatosplenomegaly present and No Rebound tenderness present Auscultation: normal bowel sounds General: Yes no CVA tenderness Musc Normal ROM of the left knee, no erythema, edema, or overt injury or trauma Skin General: warm and dry. Normal skin color. Normal skin turgor Neuro General: patient oriented x3, gait normal and no focal neuro deficit Cranial nerves: Yes Equal, round and reactive pupils present Cognition (Neuro): normal cognition Gait exam (Neuro): Normal gait present Sensory Exam: No Sensory deficit (Neuro) Psych Appearance: grossly normal Affect: normal affect Attitude: cooperative Thought process: Normal thought process present Coding Level of Care Code Est Pt Level 4 (57475) Diagnoses Acute pain of left knee M25.562 Assessment & Plan Assessment & Plan (1) Acute pain of left knee: Code(s): M25.562 - Pain in left knee Category: Medical Plan: Normal ROM of the left knee, no erythema, edema, or overt injury or trauma. Likely inflammation or tendinitis, although arthritis is possible. May take Tylenol ibuprofen for pain or discomfort. Avoid sports or exercise until healed. X-ray of left knee ordered. Referred to physical therapy. Follow-up with worsening or new symptoms. Verbalized understanding and agreed with the plan. Orders: Orders PT Evaluation and Treatment Today M25.562 - Pain in left knee XR knee LT 2V Today M25.562 - Pain in left knee
[2025-01-13 12:56] VITALS: BP 113/51; PULSE 57; RESP 16; TEMP 36.7; O2SAT 98; BMI 25.1
--- OUTSIDE RECORDS SUMMARY | 2025-01-13 15:22 | XMS_ITS | Encounter Summary ---
Author Organization [facility] Address [address] [place] [address] Phone Care Team Providers Care Optician Apprentice Name Role Phone Steph Park LOCK SETTER Primary Care Provider Un available Encounter Details Date Type Department Care Team (Late st Contact Info) Description 03/20/2012 Documentation EM Family Medicine [address] [place], [place] [phone] Family Medicine, Physician [address] [place] [address] Social History Tobacco Use Types Packs/Day Years [...] on filedocumented in this encounter Care Teams Optician Apprentice Relationship Specialty Start Date End Date Steph Park NP PCP - General 10/20/16 05/11/23 documented as of this encounter
--- OUTSIDE RECORDS SUMMARY | 2025-01-13 15:22 | XMS_ITS | Encounter Summary ---
Author Organization [facility] Address [address] [place] [address]159 Phone Care Team Providers Care Needle Punch Operator Name Role Phone Steph Park POURER CRANE LADLE Primary Care Provider Un available Encounter Details Date Type Department Care Team (Late st Contact Info) Description 03/20/2012 Documentation EM Family Medicine [address] [place], [place] [phone] Family Medicine, Physician [address] [place] [address] Social History Tobacco Use Types Packs/Day Years [...] on filedocumented in this encounter Care Teams Needle Punch Operator Relationship Specialty Start Date End Date Steph Park NP PCP - General 10/20/16 05/11/23 documented as of this encounter
--- OUTSIDE RECORDS SUMMARY | 2025-01-13 15:22 | XMS_ITS | Encounter Summary ---
Author Organization [facility] Address [address] [place] [address] Phone Care Team Providers Care Trench Digger Name Role Phone Steph Park NP Primary Care Provider Un available Encounter Details Date Type Department Care Team (Late st Contact Info) Description 10/26/2016 Conversion Encounter [facility] - [address] [address] Social History Tobacco Use Types Packs/Day Years [...] on filedocumented in this encounter Care Teams Trench Digger Relationship Specialty Start Date End Date Steph Park NP PCP - General 10/20/16 05/11/23 documented as of this encounter
--- OUTSIDE RECORDS SUMMARY | 2025-01-13 15:23 | XMS_ITS | Encounter Summary ---
Author Organization [facility] Address [address] [place] [address] Phone Care Team Providers Care Estate Planner Name Role Phone Steph Park MARKET MASTER Primary Care Provider Un available Encounter Details Date Type Department Care Team (Late st Contact Info) Description 11/20/2014 Documentation EM Family Medicine [facility] [address] [place], [place] [phone] Family Medicine, Physician [address] [place] [address] Social History Tobacco Use Types Packs/Day Years [...] on filedocumented in this encounter Care Teams Estate Planner Relationship Specialty Start Date End Date Steph Park NP PCP - General 10/20/16 05/11/23 documented as of this encounter
--- OUTSIDE RECORDS SUMMARY | 2025-01-13 15:23 | XMS_ITS | Encounter Summary ---
Author Organization [facility] Address [address] [place] [address] Phone Care Team Providers Care Follow Up Manager Name Role Phone Steph Park STORAGE CENTER MANAGER Primary Care Provider Un available Encounter Details Date Type Department Care Team (Late st Contact Info) Description 06/03/2012 Documentation EM Family Medicine [address] [place], [place] [phone] Family Medicine, Physician [address] [place] [address] Social History Tobacco Use Types Packs/Day Years [...] on filedocumented in this encounter Care Teams Follow Up Manager Relationship Specialty Start Date End Date Steph Park NP PCP - General 10/20/16 05/11/23 documented as of this encounter
--- OUTSIDE RECORDS SUMMARY | 2025-01-13 15:23 | XMS_ITS | Encounter Summary ---
Author Organization [facility] Address [address] [place] [address] Phone Care Team Providers Care Time Study Statistician Name Role Phone Steph Park LOCOMOTIVE OPERATOR HELPER Primary Care Provider Un available Encounter Details Date Type Department Care Team (Late st Contact Info) Description 05/22/2012 Documentation EM Family Medicine [address] [place], [place] [phone] Family Medicine, Physician [address] [place] [address] Social History Tobacco Use Types Packs/Day Years [...] on filedocumented in this encounter Care Teams Time Study Statistician Relationship Specialty Start Date End Date Steph Park NP PCP - General 10/20/16 05/11/23 documented as of this encounter
--- OUTSIDE RECORDS SUMMARY | 2025-01-13 15:23 | XMS_ITS | Encounter Summary ---
Author Organization [facility] Address [address] [place] [address] Phone Care Team Providers Care Ribbing Machine Operator Name Role Phone Steph Park PLYWOOD STOCK GRADER Primary Care Provider Un available Encounter Details Date Type Department Care Team (Late st Contact Info) Description 09/30/2015 Documentation EM Family Medicine [facility] [address] [place], [place] [phone] Family Medicine, Physician [address] [place] [address] Social History Tobacco Use Types Packs/Day Years [...] on filedocumented in this encounter Care Teams Ribbing Machine Operator Relationship Specialty Start Date End Date Steph Park NP PCP - General 10/20/16 05/11/23 documented as of this encounter
--- OUTSIDE RECORDS SUMMARY | 2025-01-13 15:23 | XMS_ITS | Encounter Summary ---
Author Organization [facility] Address [address] [place] [address] Phone Care Team Providers Care Radiation Oncologist Name Role Phone Steph Park CHILD SUPPORT OFFICER Primary Care Provider Un available Encounter Details Date Type Department Care Team (Late st Contact Info) Description 07/31/2013 Documentation EM Family Medicine [address] [place], [place] [phone] Family Medicine, Physician [address] [place] [address] Social History Tobacco Use Types Packs/Day Years [...] filedocumented in this encounter Care Teams Radiation Oncologist Relationship Specialty Start Date End Date Steph Park NP PCP - General 10/20/16 05/11/23 documented as of this encounter
--- OUTSIDE RECORDS SUMMARY | 2025-01-13 15:23 | XMS_ITS | Encounter Summary ---
Author Organization [facility] Address [address] [place] [address] Phone Care Team Providers Care Geomagnetist Name Role Phone Steph Park MANNEQUIN DECORATOR Primary Care Provider Un available Encounter Details Date Type Department Care Team (Late st Contact Info) Description 06/03/2012 Documentation EM Family Medicine [address] [place], [place] [phone] Family Medicine, Physician [address] [place] [address] Social History Tobacco Use Types Packs/Day Years [...] on filedocumented in this encounter Care Teams Geomagnetist Relationship Specialty Start Date End Date Steph Park NP PCP - General 10/20/16 05/11/23 documented as of this encounter
--- OUTSIDE RECORDS SUMMARY | 2025-01-13 15:23 | XMS_ITS | Encounter Summary ---
Author Organization [facility] Address [address] [place] [address] Phone Care Team Providers Care Psychological Aide Name Role Phone Steph Park DESIGN CHECKER Primary Care Provider Un available Encounter Details Date Type Department Care Team (Late st Contact Info) Description 08/13/2014 Documentation EM Family Medicine [address] [place], [place] [phone] Family Medicine, Physician [address] [place] [address] Social History Tobacco Use Types Packs/Day Years [...] on filedocumented in this encounter Care Teams Psychological Aide Relationship Specialty Start Date End Date Steph Park NP PCP - General 10/20/16 05/11/23 documented as of this encounter
--- OUTSIDE RECORDS SUMMARY | 2025-01-13 15:23 | XMS_ITS | Encounter Summary ---
Author Organization [facility] Address [address] [place] [address] Phone Care Team Providers Care Leather Tanner Name Role Phone Steph Park METAL TESTER Primary Care Provider Un available Encounter Details Date Type Department Care Team (Late st Contact Info) Description 06/04/2012 Documentation EM Family Medicine [address] [place], [place] [phone] Family Medicine, Physician [address] [place] [address] Social History Tobacco Use Types Packs/Day Years [...] on filedocumented in this encounter Care Teams Leather Tanner Relationship Specialty Start Date End Date Steph Park NP PCP - General 10/20/16 05/11/23 documented as of this encounter
--- OUTSIDE RECORDS SUMMARY | 2025-01-13 15:23 | XMS_ITS | Encounter Summary ---
Author Organization [facility] Address [address] [place] [address] Phone Care Team Providers Care Human Services Professional Name Role Phone Steph Park DUMPER MOLD CLEANER Primary Care Provider Un available Encounter Details Date Type Department Care Team (Late st Contact Info) Description 11/27/2012 Documentation EM Family Medicine [address] [place], [place] [phone] Family Medicine, Physician [address] [place] [address] Social History Tobacco Use Types Packs/Day Years [...] on filedocumented in this encounter Care Teams Human Services Professional Relationship Specialty Start Date End Date Steph Park NP PCP - General 10/20/16 05/11/23 documented as of this encounter
--- OUTSIDE RECORDS SUMMARY | 2025-01-13 15:23 | XMS_ITS | Encounter Summary ---
Author Organization [facility] Address [address] [place] [address] Phone Care Team Providers Care Maintenance Person Name Role Phone Steph Park GIN INSPECTOR Primary Care Provider Un available Encounter Details Date Type Department Care Team (Late st Contact Info) Description 12/10/2013 Documentation EM Family Medicine [address] [place], [place] [phone] Family Medicine, Physician [address] [place] [address] Social History Tobacco Use Types Packs/Day Years [...] on filedocumented in this encounter Care Teams Maintenance Person Relationship Specialty Start Date End Date Steph Park NP PCP - General 10/20/16 05/11/23 documented as of this encounter
--- OUTSIDE RECORDS SUMMARY | 2025-01-13 15:23 | XMS_ITS | Encounter Summary ---
Author Organization [facility] Address [address] [place] [address] Phone Care Team Providers Care Scientific Specialist Name Role Phone Steph Park CUPBOARD BUILDER Primary Care Provider Un available Encounter Details Date Type Department Care Team (Late st Contact Info) Description 07/31/2013 Documentation EM Family Medicine [address] [place], [place] [phone] Family Medicine, Physician [address] [place] [address] Social History Tobacco Use Types Packs/Day Years [...] on filedocumented in this encounter Care Teams Scientific Specialist Relationship Specialty Start Date End Date Steph Park NP PCP - General 10/20/16 05/11/23 documented as of this encounter
--- OUTSIDE RECORDS SUMMARY | 2025-01-13 15:23 | XMS_ITS | Encounter Summary ---
Author Organization [facility] Address [address] [place] [address] Phone Care Team Providers Care Color Repairer Name Role Phone Steph Park JOB SUPERINTENDENT Primary Care Provider Un available Encounter Details Date Type Department Care Team (Late st Contact Info) Description 09/30/2015 Documentation EM Family Medicine [facility] [address] [place], [place] [phone] Family Medicine, Physician [address] [place] [address] Social History Tobacco Use Types Packs/Day Years [...] on filedocumented in this encounter Care Teams Color Repairer Relationship Specialty Start Date End Date Steph Park NP PCP - General 10/20/16 05/11/23 documented as of this encounter
--- OUTSIDE RECORDS SUMMARY | 2025-01-13 15:23 | XMS_ITS | Encounter Summary ---
Author Organization [facility] Address [address] [place] [address] Phone Care Team Providers Care Securities Settlement Processor Name Role Phone Steph Park PRODUCT DELIVERY SPECIALIST Primary Care Provider Un available Encounter Details Date Type Department Care Team (Late st Contact Info) Description 11/06/2012 Documentation EM Family Medicine [address] [place], [place] [phone] Family Medicine, Physician [address] [place] [address] Social History Tobacco Use Types Packs/Day Years [...] on filedocumented in this encounter Care Teams Securities Settlement Processor Relationship Specialty Start Date End Date Steph Park NP PCP - General 10/20/16 05/11/23 documented as of this encounter
--- OUTSIDE RECORDS SUMMARY | 2025-01-13 15:23 | XMS_ITS | Encounter Summary ---
Author Organization [facility] Address [address] [place] [address] Phone Care Team Providers Care Practice Managers Name Role Phone Steph Park MIX CHEMIST Primary Care Provider Un available Encounter Details Date Type Department Care Team (Late st Contact Info) Description 06/03/2012 Documentation EM Family Medicine [address] [place], [place] [phone] Family Medicine, Physician [address] [place] [address] Social History Tobacco Use Types Packs/Day Years [...] on filedocumented in this encounter Care Teams Practice Managers Relationship Specialty Start Date End Date Steph Park NP PCP - General 10/20/16 05/11/23 documented as of this encounter
--- OUTSIDE RECORDS SUMMARY | 2025-01-13 15:23 | XMS_ITS | Encounter Summary ---
Author Organization [facility] Address [address] [place] [address] Phone Care Team Providers Care Director Of Neighborhood Service Center Name Role Phone Steph Park INTEGRATION MANAGER Primary Care Provider Un available Encounter Details Date Type Department Care Team (Late st Contact Info) Description 07/29/2013 Documentation EM Family Medicine [address] [place], [place] [phone] Family Medicine, Physician [address] [place] [address] Social History Tobacco Use Types Packs/Day Years [...] on filedocumented in this encounter Care Teams Director Of Neighborhood Service Center Relationship Specialty Start Date End Date Steph Park NP PCP - General 10/20/16 05/11/23 documented as of this encounter
--- OUTSIDE RECORDS SUMMARY | 2025-01-13 15:23 | XMS_ITS | Encounter Summary ---
Author Organization [facility] Address [address] [place] [address] Phone Care Team Providers Care Pheresis Specialist Name Role Phone Steph Park CORNICE UPHOLSTERER Primary Care Provider Un available Encounter Details Date Type Department Care Team (Late st Contact Info) Description 06/03/2012 Documentation EM Family Medicine [address] [place], [place] [phone] Family Medicine, Physician [address] [place] [address] Social History Tobacco Use Types Packs/Day Years [...] on filedocumented in this encounter Care Teams Pheresis Specialist Relationship Specialty Start Date End Date Steph Park NP PCP - General 10/20/16 05/11/23 documented as of this encounter
--- OUTSIDE RECORDS SUMMARY | 2025-01-13 15:23 | XMS_ITS | Encounter Summary ---
Author Organization [facility] Address [address] [place] [phone] Phone Care Team Providers Care Revenue Liaison Name Role Phone Steph Park PETROLEUM BLENDING PLANT OPERATOR Primary Care Provider Un available Encounter Details Date Type Department Care Team (Late st Contact Info) Description 08/13/2014 Documentation EM Family Medicine [address] [place], [place] [phone] Family Medicine, Physician [address] [place] [address] Social History Tobacco Use Types Packs/Day Years [...] filedocumented in this encounter Care Teams Revenue Liaison Relationship Specialty Start Date End Date Steph Park NP PCP - General 10/20/16 05/11/23 documented as of this encounter
--- OUTSIDE RECORDS SUMMARY | 2025-01-13 15:23 | XMS_ITS | Encounter Summary ---
Author Organization [facility] Address [address] [place] [address] Phone Care Team Providers Care Gas Operator Name Role Phone Steph Park JEWEL STRINGER Primary Care Provider Un available Encounter Details Date Type Department Care Team (Late st Contact Info) Description 08/13/2014 Documentation EM Family Medicine [address] [place], [place] [address] Family Medicine, Physician [address] [place] [address] Social History Tobacco Use Types Packs/Day Years [...] filedocumented in this encounter Care Teams Gas Operator Relationship Specialty Start Date End Date Steph Park NP PCP - General 10/20/16 05/11/23 documented as of this encounter
--- OUTSIDE RECORDS SUMMARY | 2025-01-13 15:23 | XMS_ITS | Encounter Summary ---
Author Organization [facility] Address [address] [place] [address] Phone Care Team Providers Care Languages And Literature Instructor Name Role Phone Steph Park REED CLEANER Primary Care Provider Un available Encounter Details Date Type Department Care Team (Late st Contact Info) Description 11/27/2012 Documentation EM Family Medicine [address] [place], [place] [phone] Family Medicine, Physician [address] [place] [address] Social History Tobacco Use Types Packs/Day Years [...] on filedocumented in this encounter Care Teams Languages And Literature Instructor Relationship Specialty Start Date End Date Steph Park NP PCP - General 10/20/16 05/11/23 documented as of this encounter
--- OUTSIDE RECORDS SUMMARY | 2025-01-13 15:23 | XMS_ITS | Encounter Summary ---
Author Organization [facility] Address [address] [place] [address] Phone Care Team Providers Care Hospital Clinic Assistant Name Role Phone Steph Park DIRECTOR DATA PROCESSING Primary Care Provider Un available Encounter Details Date Type Department Care Team (Late st Contact Info) Description 06/03/2012 Documentation EM Family Medicine [address] [place], [place] [phone] Family Medicine, Physician [address] [place] [address] Social History Tobacco Use Types Packs/Day Years [...] on filedocumented in this encounter Care Teams Hospital Clinic Assistant Relationship Specialty Start Date End Date Steph Park NP PCP - General 10/20/16 05/11/23 documented as of this encounter
--- OUTSIDE RECORDS SUMMARY | 2025-01-13 15:23 | XMS_ITS | Encounter Summary ---
Author Organization [facility] Address [address] [place] [address] Phone Care Team Providers Care Clinical Manager Home Care Name Role Phone Steph Park COLOR ADVISER Primary Care Provider Un available Encounter Details Date Type Department Care Team (Late st Contact Info) Description 06/03/2012 Documentation EM Family Medicine [address] [place], [place] [phone] Family Medicine, Physician [address] [place] [address] Social History Tobacco Use Types Packs/Day Years [...] on filedocumented in this encounter Care Teams Clinical Manager Home Care Relationship Specialty Start Date End Date Setph Park NP PCP - General 10/20/16 05/11/23 documented as of this encounter
--- OUTSIDE RECORDS SUMMARY | 2025-01-13 15:23 | XMS_ITS | Encounter Summary ---
Author Organization [facility] Address [address] [place] [address] Phone Care Team Providers Care Cokeman Name Role Phone Steph Park SURGICAL CODER Primary Care Provider Un available Encounter Details Date Type Department Care Team (Late st Contact Info) Description 06/03/2012 Documentation EM Family Medicine [address] [place], [place] [phone] Family Medicine, Physician [address] [place] [address] Social History Tobacco Use Types Packs/Day Years [...] on filedocumented in this encounter Care Teams Cokeman Relationship Specialty Start Date End Date Steph Park NP PCP - General 10/20/16 05/11/23 documented as of this encounter
--- OUTSIDE RECORDS SUMMARY | 2025-01-13 15:23 | XMS_ITS | Encounter Summary ---
Author Organization [facility] Address [address] [place] [address] Phone Care Team Providers Care Crew Clerk Name Role Phone Steph Park CURRICULUM DIRECTOR Primary Care Provider Un available Encounter Details Date Type Department Care Team (Late st Contact Info) Description 06/03/2012 Documentation EM Family Medicine [address] [place], [place] [phone] Family Medicine, Physician [address] [place] [address] Social History Tobacco Use Types Packs/Day Years [...] on filedocumented in this encounter Care Teams Crew Clerk Relationship Specialty Start Date End Date Steph Park NP PCP - General 10/20/16 05/11/23 documented as of this encounter
--- OUTSIDE RECORDS SUMMARY | 2025-01-13 15:23 | XMS_ITS | Clinical Summary ---
Author Organization [facility] Address [address] [place] [address] Phone Care Team Providers Care Site Reliability Engineer Name Role Phone Unavailable Primary Care Provider [...] back on those daily. Discussed referral to fringe maker vs ENT given chronic congestion. If does [...]
--- OUTSIDE RECORDS SUMMARY | 2025-01-13 15:23 | XMS_ITS | Clinical Summary ---
Author Organization [facility] Address [address] [place] [address] Phone Care Team Providers Care Lace Burn Out Tender Name Role Phone Roselia De Los Santos MAINTENANCE PLANNER Primary Care Provider [phone]- [phone] Allergies No known active allergies Medications sertraline [...] back on those daily. Discussed referral to precinct police lieutenant vs ENT given chronic congestion. If does [...] VACCINE (#1) 2024 COVID-19 VACCINE (1 - 2024-2 6 season) 2024 SMOKING Hx and SMOKELESS TOB [...] Not on file Insurance CARE Care Teams Lace Burn Out Tender Relationship Specialty Start Date End Date Roselia De Los Santos NP [address] [place] [address] PCP - General Nurse Practitioner 06/08/24 Additional Source Comments The information contained in this document represents components of the legal health record. It is not the complete legal health record.[facility]
--- OUTSIDE RECORDS SUMMARY | 2025-01-13 15:23 | XMS_ITS | Encounter Summary ---
Author Organization [facility] Address [address] [place] [address] Phone Care Team Providers Care Shrink Pit Operator Name Role Phone Steph Park SUPERVISOR PUBLICATIONS PRODUCTION Primary Care Provider Un available Encounter Details Date Type Department Care Team (Late st Contact Info) Description 11/27/2012 Documentation EM Family Medicine [address] [place], [place] [phone] Family Medicine, Physician [address] [place] [address] Social History Tobacco Use Types Packs/Day Years [...] on filedocumented in this encounter Care Teams Shrink Pit Operator Relationship Specialty Start Date End Date Steph Park NP PCP - General 10/20/16 05/11/23 documented as of this encounter
--- OUTSIDE RECORDS SUMMARY | 2025-01-13 15:23 | XMS_ITS | Encounter Summary ---
Author Organization [facility] Address [address] [place] [address] Phone Care Team Providers Care Building Manager Name Role Phone Steph Park FIBERGLASS SKI MAKER Primary Care Provider Un available Encounter Details Date Type Department Care Team (Late st Contact Info) Description 06/03/2012 Documentation EM Family Medicine [address] [place], [place] [phone] Family Medicine, Physician [address] [place] [address] Social History Tobacco Use Types Packs/Day Years [...] on filedocumented in this encounter Care Teams Building Manager Relationship Specialty Start Date End Date Steph Park NP PCP - General 10/20/16 05/11/23 documented as of this encounter
--- OUTSIDE RECORDS SUMMARY | 2025-01-13 15:23 | XMS_ITS | Encounter Summary ---
Author Organization [facility] Address [address] [place] [address] Phone Care Team Providers Care Cardiopulmonary Technician And Eeg Tech Name Role Phone Steph Park TRIM CARPENTER Primary Care Provider Un available Encounter Details Date Type Department Care Team (Late st Contact Info) Description 12/10/2013 Documentation EM Family Medicine [address] [place], [place] [phone] Family Medicine, Physician [address] [place] [address] Social History Tobacco Use Types Packs/Day Years [...] on filedocumented in this encounter Care Teams Cardiopulmonary Technician And Eeg Tech Relationship Specialty Start Date End Date Steph Park NP PCP - General 10/20/16 05/11/23 documented as of this encounter
== END 2025-01-13 13:18 | disposition home or self-care (01) ==
LOC: HO.HMCFM 12:41
PROVIDERS: PCP Nurse Practitioner Family; Visit Provider Nurse Practitioner Family
DX: M25.562 Pain in left knee (principal)

== ENCOUNTER 2025-01-13 12:41 | Outpatient (REF) | payer OTHER, SELFPAY ==
--- NOTE | ~2025-01-13 | XR_ITS ---
EXAMINATION: XR KNEE, LEFT CLINICAL INFORMATION: M25.562 - Pain in left knee COMPARISON: None available. TECHNIQUE: Four views of the left knee. FINDINGS: No fracture or joint effusion. Alignment is anatomic. Joint spaces are maintained. No abnormal soft tissue calcification. XR/XR knee LT 2V IMPRESSION: No acute findings Electronically signed by: Fabrizio Kang MD 01/14/2025 01:21 PM EST
== END 2025-01-13 12:42 | disposition home or self-care (01) ==
LOC: HO.XRAY 12:41
PROVIDERS: PCP Nurse Practitioner Family; Visit Provider Nurse Practitioner Family
DX: M25.562 Pain in left knee (principal); M23.52 Chronic instability of knee, left knee
CPT/HCPCS: 73560

== ENCOUNTER → 2025-01-13 15:57 | Outpatient (BNV) | payer OTHER, SELFPAY | PROVIDERS: PCP Nurse Practitioner Family; Visit Provider Radiology Diagnostic Ultrasound | DX: M25.562 Pain in left knee (principal) | CPT/HCPCS: 73560 ==